=== PATIENT | male | born 1945 | race African-American/Black ===

== ENCOUNTER 2020-01-10 20:47 | Inpatient (IN) | payer MEDICARE, OTHER ==
[~2020-01-10 20:47] MED LIST: Heparin 1,000 UNITS/ML VIAL ONE
--- NOTE | 2020-01-10 23:29 | RAD ---
SINGLE VIEW OF THE CHEST: 01/10/20 HISTORY: Bowel obstruction. NG tube placement. COMPARISON: 12/19/19 FINDINGS: Single view of the lower chest/upper abdomen shows a normal sized cardiomediastinal silhouette. The M ediport is unchanged in position. An NG tube is seen in the stomach. A few air filled loops of small bowel are seen in the upper abdomen. IMPRESSION: NG tube located in the stomach. POS: EAA
[2020-01-11] MEDS ORDERED: Labetalol HCl 100 MG/20 ML VIAL ONE
--- NOTE | 2020-01-11 01:04 | HP ---
PRIMARY CARE PHYSICIAN: Dr. Eder Rhodes. CHIEF COMPLAINT: Small-bowel obstruction. HISTORY OF PRESENT ILLNESS: The patient is a 74-year-old black male. He presented to the hospital in [facility] complaining of abdominal distention with bloating and no ostomy output since last night. CT scan was obtained revealing findings consistent with a small-bowel obstruction. He has ascites within his abdomen as well. It is noted that the patient has had essentially identical CT scans both on December 19, 2019, and December 02, 2019. He was felt to have a small-bowel obstruction on both of those occasions, and he was transferred to [facility] in [place] where he had his only prior abdominal surgery in August 2019. I have no records since this patient has not been admitted to this hospital ever that I can tell. He gives a limited history. He apparently has known metastatic disease. It sounds like he probably had an obstructing colon cancer or colorectal cancer, and at the time of his surgery, a laparoscopy was performed with creation of what appears to be a left-sided ostomy. I am not certain what was done to help his obvious obstructive process on his 2 prior admissions (the most recent of which was 3 weeks ago). The patient seemed to disenchanted with the care that he got in [place] as he believes that nothing was done for him, although he acknowledges that he was better by the time he left the hospital. He tells me that he has had 1 round of chemotherapy and this was also done in [place]. The patient tells me that his surgery and his chemotherapy occurred in [place] because he "happened to be there at the time that he developed problems." PAST MEDICAL HISTORY: Significant for hypertension and hypercholesterolemia. PAST SURGICAL HISTORY: None other than his diverting colostomy. I am uncertain if any resection was performed or not. He denies any other surgeries. MEDICATIONS: He takes a blood pressure medication, the name of which he cannot remember. He takes Lipitor and aspirin. ALLERGIES: NO KNOWN DRUG ALLERGIES. PERSONAL AND SOCIAL HISTORY: He is with 3 children. He has lived in [place] for about 25 years. He formally smoked, but quit smoking in 2011. REVIEW OF SYSTEMS: Otherwise unremarkable. FAMILY HISTORY: Noncontributory. PHYSICAL EXAMINATION: VITAL SIGNS: He is afebrile. His vital signs within normal limits. GENERAL: He is a thin black male, appearing older than stated age. 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 HEAD, EYES, EARS, NOSE, AND THROAT: Unremarkable. NECK: Supple. LUNGS: Clear to auscultation. CARDIAC: Regular rate and rhythm. ABDOMEN: Distended and with hyperactive bowel sounds. He has an ostomy in his left abdomen with a bag with minimal output. His abdomen is diffusely distended and diffusely uncomfortable, but without evidence of peritonitis. LABORATORY DATA: CBC this evening revealed white blood cell count of 5.3 with a hemoglobin of 11.3 and platelet count is 324 with a normal differential. Chemistry profile reveals normal electrolytes and glucose level. His lactic acid level is normal at 0.7. His albumin is low at 0.3, but other liver function tests are normal. His CEA level has not yet been obtained, but will be obtained. ASSESSMENT: The patient with an obstruction. Based on his CAT scan, it is difficult to tell if this is within the small bowel or within the colon. He does have apparent metastatic disease, and therefore this could be a malignant obstruction. PLAN: I will admit him to the hospital, place a nasogastric tube, give him IV fluids, and obtain records from [place] to discern what was done surgically and what was done the past 2 times he was hospitalized. He may require surgery to resolve this obstruction since this is the 3rd time within a 1 month period he has been admitted for this problem. Job ID: [id number]
[2020-01-11] MEDS ORDERED: Dextrose 5% in Water 1,000 ML IV PRN ×2 (01:08→14:54)
[2020-01-11] MEDS ORDERED: Ondansetron PF 4 MG/2 ML Vial IVP PRN (01:08)
[2020-01-11] MEDS ORDERED: Dextrose 50% Abboject 50 ML SYRINGE SLOW IVP PRN ×2 (01:08→14:54)
[2020-01-11] MEDS: D5 1/2 NS w/20 mEq KCL 1,000 ML IV SCH ×3 (01:42→19:56)
[2020-01-11] MEDS: hydrALAZINE 20 MG/ML VIAL SLOW IVP PRN ×2 (03:56→23:22)
[2020-01-11 05:44] LABS: #Lymphocytes 1.2 thou/uL (1.20-3.40); #Monocytes 0.6 thou/uL (0.11-0.59); #Neutrophils 3.1 thou/uL (1.40-6.50); %Basophils 0.5 % (0.0-1.0); %Eosinophils 0.6 % (0.0-10.0); %Monocytes 12.4 % (0.0-10.0); %Neutrophils 62.5 % (42.0-75.0); Hemoglobin 12.1 g/dL (14.0-18.0); Mean Corpuscular HGB CONC 31.9 g/dL (32.0-36.0); Mean Corpuscular Hemoglobin 27.6 pg (27.0-31.0); Mean Corpuscular Volume 86.4 fL (78.0-98.0); Mean Platelet Volume 7.5 fL (7.4-10.4); Platelet Count 326 thou/uL (130-400); RBC Distribution Width 13.9 % (11.5-14.5); Red Blood Cell (RBC) Count 4.39 mill/uL (4.70-6.10)
[2020-01-11] MEDS: Morphine 2 MG/ML SYRINGE SLOW IVP PRN ×2 (05:47→21:07)
[2020-01-11 06:02] LABS: Anion Gap 11 mmol/L (10-20); BUN (Urea Nitrogen) 14 mg/dL (8.4-25.7); Calc. Creatinine Clearance 78 mL/min (70-130); Calcium 8.7 mg/dL (7.8-10.44); Carbon Dioxide 23 mmol/L (23-31); Chloride 103 mmol/L (98-107); Estimated GFR-MDRD Greater than 90; Glucose 131 mg/dL (83-110); Potassium 4.4 mmol/L (3.5-5.1); Sodium 133 mmol/L (136-145)
[2020-01-11] MEDS: Enoxaparin Sodium 30 MG/0.3 ML SYRINGE SC SCH (08:05)
[2020-01-11] MEDS: Famotidine/PF 20 mg/2ml Vial SLOW IVP SCH ×2 (08:05→19:56)
[2020-01-11] MEDS ORDERED: Insulin Regular 300 UNITS/3 ML VIAL SC PRN (14:54)
--- NOTE | 2020-01-11 15:35 | PRG ---
DATE OF SERVICE: 01/11/2020 SUBJECTIVE: Mr. Mittal is hospital day #2 followed admission yesterday evening for what appears to be a bowel obstruction. 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 He has had little ostomy output. He feels bloated, but denies other symptoms. PHYSICAL EXAMINATION: VITAL SIGNS: On examination, he is afebrile, pulse 73, blood pressure 139/85. LUNGS: Clear to auscultation. ABDOMEN: Distended, but essentially is nontender. Bowel sounds are present and normoactive. LABORATORY DATA: Basic metabolic panel shows electrolytes are essentially normal. His CEA level is 2.68. CBC shows a white blood cell count of 5 with a normal differential, hemoglobin is 12.1. ASSESSMENT: The patient with some degree of an obstruction. There was concern that this could be a malignant obstruction. I have requested medical records from the [facility] in [place] regarding his last 3 admissions, at which time, he had surgery and 2 admissions for bowel obstruction. These are beginning to come in, but there was apparently 70 or 80 pages and I have not yet had a chance to peruse them. For now, I will have a PICC line placed by Radiology. I will initiate TPN as he is already malnourished with a low albumin. I will continue nasogastric tube and encourage ambulation. I will review his medical records. May consider a small bowel series at the beginning of this next week versus consideration of surgery if there has been no evidence of resolution of the obstructive process. I have discussed all this in detail with the patient. He understands and agrees to proceed in this fashion. Dr. Sutton will cover this patient for me over the weekend. ADDENDUM: Since the prior note was dictated, I have had the chance to review 72 pages of medical records sent from [facility] in regard to Mr. Kyrie Dao. The chronological summary is as follows. August 20, he was admitted to the hospital secondary to abdominal discomfort and some weight loss. He underwent evaluation with a CT scan and an upper and lower endoscopy. There was noted to be some degree of sigmoid narrowing, but biopsies proved to be negative. There was no evidence of malignancy on CT scan. There was some degree of hydronephrosis. Apparently, at that time, there was consultation with colorectal surgery. His next hospitalization was November 05 at which time, a colorectal surgeon, Dr. Tom took him to the operating room for a planned robotic-assisted sigmoid colectomy. Dr. Tom noted that he could not advance his finger in the rectum at the time of the surgery. There was some degree of narrowing or stricture. At the time of laparoscopic evaluation, the patient was noted to have a large mesenteric mass within the proximal jejunum. 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 There was evidence of carcinomatosis and there was studding involving the sigmoid colon as well. For this reason, the patient was given a loop colostomy. The mid transverse colon was utilized through a left lower quadrant incision. There is no actual colon resection. The apparent etiology of the malignancy did not seem to be determined at the time of that surgery. On November 14, the patient returned to the hospital when he was noted to have prolapse of his loop colostomy and he required a segmental resection with revision of the ostomy. He still has a double-barrel colostomy, but it is of a [place] type. On December 02, the patient returned to the hospital and was hospitalized for 1 week. He presented with a small-bowel obstruction, which seemed to resolve quickly. During that visit, a MediPort was placed and chemotherapy was initiated. I saw no notes with the transferred records from Oncology in regard to their thoughts or plans. On December 19 (earlier this month), the patient again returned to the hospital with an apparent obstruction. He was treated with nasogastric tube placement. I could find no notes of his course, but it appeared that his obstruction resolved with conservative management. It was noted on that history and physical examination, the patient was COVID-19 positive prior to that admission (apparently sometime in late November). ASSESSMENT: In summary, the patient I believe is felt to have an adenocarcinoma, potentially of unknown etiology with carcinomatosis and a large mesenteric mass with studding involving the sigmoid colon. I am not certain if there were any further surgical plans. Unfortunately, it is Tuesday evening at this time and it seems unlikely that I will be able to get hold of the patient's surgeon to discuss his case. I will therefore plan to speak with this patient's surgeon Tuesday morning to make sure that there is nothing about this patient's course that I do not understand. My guess is that he was receiving palliative chemotherapy. Job ID: [id number]
--- NOTE | 2020-01-11 17:48 | SPC ---
Exam: Ultrasound-guided left upper extremity PICC line placement HISTORY: Patient requires TPN. Colon cancer FINDINGS: Successful left upper extremity PICC line placement. Dual lumen 5 Turkmen catheter terminate s in the right atrium. 45 cm trim length. Catheter flushes and aspirates without difficulty TECHNIQUE: Left upper extremity PICC line placement with ultrasound guidance was performed. Consent w as obtained. Sterile technique was utilized. Under ultrasound guidance, micropuncture needle was used to cannulate the brachial vein. A 0.018 guidewire was advanced through the needle to the level o f the right atrium. Tract dilatation was performed. Dual lumen 5 Turkmen catheter was advanced over the wire. Wire was removed. Both lumens flush and aspirate without difficulty. 45 cm trim length IMPRESSION: Successful left upper extremity PICC line placement with ultrasound guidance Transcribed Date/Time: 01/11/2020 6:12 PM
[2020-01-11 18:14] LABS: PTT 33.2 SEC (22.9-36.1); Prothrombin Time 13.5 SEC (12.0-14.7)
[2020-01-11 18:27] LABS: Phosphorus 3.2 mg/dL (2.3-4.7)
[2020-01-11 18:31] LABS: ALT (SGPT) 12 U/L (8-55); AST (SGOT) 15 U/L (5-34); Alkaline Phosphatase 61 U/L (40-110); Anion Gap 11 mmol/L (10-20); BUN (Urea Nitrogen) 13 mg/dL (8.4-25.7); Bilirubin, Total 0.6 mg/dL (0.2-1.2); Calc. Creatinine Clearance 71 mL/min (70-130); Calcium 8.8 mg/dL (7.8-10.44); Carbon Dioxide 25 mmol/L (23-31); Cardiac Risk 2.2 (Less than 4.5); Chloride 103 mmol/L (98-107); Cholesterol 102 mg/dl (< 200 Desired); Estimated GFR-MDRD Greater than 90; Globulin 2.7 g/dL (2.4-3.5); Glucose 103 mg/dL (83-110); HDL Cholesterol 46 mg/dL (>60 Neg Risk); LDL Cholesterol, Calculated 46 mg/dL; Magnesium 1.7 mg/dL (1.6-2.6); Potassium 4.6 mmol/L (3.5-5.1); Protein, Total 5.7 g/dL (5.8-8.1); Sodium 134 mmol/L (136-145); Triglycerides 48 mg/dL (Less than 150)
[2020-01-11] MEDS: [UNRECOGNIZED DRUG - OTHER] IV SCH (22:15)
[2020-01-11] MEDS: SODIUM CHLORIDE IV SCH (22:15)
[2020-01-11] MEDS: FAT EMULSION IV SCH (22:15)
[2020-01-11] MEDS: SODIUM ACETATE IV SCH (22:15)
--- NOTE | 2020-01-12 00:19 | PRG ---
DATE OF SERVICE: 01/11/2020 SUBJECTIVE: This is a 74-year-old gentleman, hospital day #2, with small-bowel obstruction. The patient is currently resting comfortably in no acute distress. The patient's night nurse reports no output from his colostomy and also no output from his NG tube. NG tube appears to be functioning properly. OBJECTIVE: Vital signs: Blood pressure 162/97, temperature 97.3, pulse 85, respirations 18, SpO2 of 95% on room air. ASSESSMENT: Small-bowel obstruction. PLAN: Bowel rest, maintenance IV fluids, TPN. Continue NG tube and encourage ambulation. Job ID: [id number]
[2020-01-12 05:42] LABS: Anion Gap 9 mmol/L (10-20); BUN (Urea Nitrogen) 14 mg/dL (8.4-25.7); Calc. Creatinine Clearance 80 mL/min (70-130); Calcium 8.6 mg/dL (7.8-10.44); Carbon Dioxide 24 mmol/L (23-31); Chloride 104 mmol/L (98-107); Estimated GFR-MDRD Greater than 90; Glucose 110 mg/dL (83-110); Magnesium 1.8 mg/dL (1.6-2.6); Phosphorus 3.2 mg/dL (2.3-4.7); Potassium 4.9 mmol/L (3.5-5.1); Sodium 132 mmol/L (136-145)
[2020-01-12 05:54] LABS: Hemoglobin 12.3 g/dL (14.0-18.0); Mean Corpuscular HGB CONC 30.7 g/dL (32.0-36.0); Mean Corpuscular Hemoglobin 26.9 pg (27.0-31.0); Mean Corpuscular Volume 87.7 fL (78.0-98.0); Mean Platelet Volume 7.4 fL (7.4-10.4); Platelet Count 320 thou/uL (130-400); Red Blood Cell (RBC) Count 4.56 mill/uL (4.70-6.10); White Blood Cell (WBC) Count 5.7 thou/uL (4.8-10.8)
[2020-01-12 06:12] LABS: Band 9 % (5-11); Lymphocytes 19 % (21-51); MDiff Complete? YES; Monocytes 12 % (0-10); Neutrophil 60 % (42-75)
[2020-01-12] MEDS ORDERED: Sodium Phosphate 15 MMOL in Sodium Chloride 0.9% 250 ML 250 ML IVPB SCH (07:30)
[2020-01-12] MEDS ORDERED: Magnesium 2 GM/50 ML 2 GM in Premix Bag 1 BAG IVPB SCH (07:30)
[2020-01-12] MEDS ORDERED: Sodium Chloride 0.9% 1,000 ML IV SCH (07:30)
[2020-01-12] MEDS: Metoprolol Tartrate 25 MG TAB PO SCH ×2 (08:15→20:10)
[2020-01-12] MEDS: Lisinopril 20 MG TAB PO SCH (08:15)
[2020-01-12] MEDS: Famotidine/PF 20 mg/2ml Vial SLOW IVP SCH ×2 (08:16→20:10)
[2020-01-12] MEDS: Enoxaparin Sodium 30 MG/0.3 ML SYRINGE SC SCH (08:26)
[2020-01-12] MEDS: D5 1/2 NS w/20 mEq KCL 1,000 ML IV SCH (08:33)
[2020-01-12] MEDS ORDERED: MD-Gastroview 120 ML BOT ONE (10:18)
[2020-01-12] MEDS: Morphine 2 MG/ML SYRINGE SLOW IVP PRN (15:02)
--- NOTE | 2020-01-12 15:12 | RAD ---
Gastrografin small bowel follow-through INDICATION: Small bowel obstruction COMPARISON: Prior CT the abdomen and pelvis dated January 10, 2020 Gastrografin contrast volume: 120 cc. FINDINGS: Snowboarding Instructor: There are dilated loops of small bowel within the upper to mid central abdomen gastric cathete r is seen within the region of the gastric body. Small bowel follow-through: There are numerous dilated loops of small bowel seen involving the mid to distal abdomen. Contrast is seen to enter into a dilated loop of small bowel within the right hemiabdomen by the 2 hour time mari. At this time, Dr. Sutton of General Surgery requested termination of the examination. IMPRESSION: High-grade small bowel obstruction
--- NOTE | 2020-01-12 16:33 | PRG ---
DATE OF SERVICE: 01/12/2020 SUBJECTIVE: I am seeing Mr. Dao on behalf of Dr. Loera. The patient is a 74-year-old man with history of obstructing colorectal cancer. The patient is status post diverting colostomy. He was admitted with acute bowel obstruction, uncertain if this was a large small bowel obstruction. Nasogastric tube was placed. The patient is on bowel rest with TPN for nutrition. At the time of my evaluation this morning, the patient reported adequate pain control. He has had no fevers or chills. Previous nasogastric tube has returned less than 100 mL of nonbilious gastric effluent. Nasogastric tube was inspected for proper positioning and adequate function was established and yet no output of bilious fluid. OBJECTIVE: VITAL SIGNS: This morning included blood pressure 160/111, pulse 91, respiratory rate 18, temperature 97.4 degrees Fahrenheit, oxygen saturation 97% on room air. HEART: Reveals regular rate and rhythm. No murmurs or gallops auscultated. LUNGS: Clear to auscultation bilaterally. Breathing, regular and nonlabored. ABDOMEN: Soft and nondistended with minimum tenderness to palpation. Colostomy is viable with no stool or gas output. NEUROLOGIC: Reveals no focal deficits present. LABORATORY FINDINGS: Include a CBC with 5007 white blood cells, hemoglobin and hematocrit 12.3 and 40.0 respectively, the platelet count is 320,000. Metabolic profile; sodium 132, potassium 4.9, chloride is 104, bicarb is 24, BUN 14, creatinine 0.70, glucose 110, magnesium 1.8, and phosphorus is 3.2. I initiated small bowel follow-through with Gastrografin, and at 2 hours, the contrast has entered dilated mid jejunum. The patient started to complain of severe intestinal cramps associated with abdominal bloating, hiccups, and nausea. Small bowel follow-through was terminated at 2 hours and nasogastric tube was replaced to wall suction, at which time 1.5 L of bilious succus entericus was evacuated. IMPRESSION: 1. Acute small bowel obstruction, likely secondary to adhesions versus progressive malignancy. 2. Acute hyponatremia. 3. Acute hypomagnesemia. PLAN: 1. Continue bowel rest with nasogastric tube decompression. 2. Total parenteral nutrition will be continued. 3. We will continue with this conservative management at this time and increase activity as the patient may tolerate. 4. If the small bowel obstruction fails to resolve within the next few days, other options will be discussed with the patient at that time by his primary surgeon. The patient indicated understanding of information given. 5. I have answered his questions. Job ID: [id number]
[2020-01-12] MEDS: hydrALAZINE 20 MG/ML VIAL SLOW IVP PRN (17:55)
[2020-01-12] MEDS ORDERED: Ketorolac Tromethamine 30 MG/ML VIAL IVP SCH (20:30)
[2020-01-12] MEDS: [UNRECOGNIZED DRUG - OTHER] IV SCH (22:30)
[2020-01-12] MEDS: SODIUM CHLORIDE IV SCH (22:30)
[2020-01-12] MEDS: FAT EMULSION IV SCH (22:30)
[2020-01-12] MEDS: SODIUM ACETATE IV SCH (22:30)
[2020-01-13] MEDS: Ketorolac Tromethamine 30 MG/ML VIAL IVP SCH ×4 (02:24→21:02)
--- NOTE | 2020-01-13 03:43 | PRG ---
DATE OF SERVICE: 01/13/2020 SUBJECTIVE: The patient remains on the surgical floor, awake, alert, in no distress. The patient is having some moderate amount of abdominal pain currently. The patient's NG tube repositioned and flushed and appears to be working properly at this time. Nursing staff states that the morphine makes him confused. The patient continues to receive TPN and remains n.p.o. with bowel rest. No bilious output from NG tube. OBJECTIVE: VITAL SIGNS: Stable, afebrile. GENERAL: Well-appearing elderly male, in no acute distress. RESPIRATORY: Equal chest rise and fall. No respiratory distress. IMPRESSION: 1. Acute small bowel obstruction, likely secondary to adhesions versus progressive malignancy. 2. Acute hyponatremia. 3. Acute hypomagnesium. PLAN: Continue bowel rest with nasogastric tube decompression. Continue parenteral nutrition. Conservative management at this time and increase activity as the patient tolerates. We will add Toradol to the patient's pain regimen as the morphine makes him confused. Job ID: [id number]
[2020-01-13 06:17] LABS: Hemoglobin 10.9 g/dL (14.0-18.0); Mean Corpuscular HGB CONC 30.7 g/dL (32.0-36.0); Mean Corpuscular Hemoglobin 26.9 pg (27.0-31.0); Mean Corpuscular Volume 87.4 fL (78.0-98.0); Mean Platelet Volume 7.5 fL (7.4-10.4); Platelet Count 303 thou/uL (130-400); RBC Distribution Width 14.1 % (11.5-14.5); Red Blood Cell (RBC) Count 4.05 mill/uL (4.70-6.10); White Blood Cell (WBC) Count 5.8 thou/uL (4.8-10.8)
[2020-01-13 06:39] LABS: Band 4 % (5-11); Lymphocytes 23 % (21-51); MDiff Complete? YES; Monocytes 12 % (0-10); Neutrophil 60 % (42-75); Reactive Lymphocytes 1 % (0-10)
[2020-01-13 06:43] LABS: ALT (SGPT) 9 U/L (8-55); AST (SGOT) 13 U/L (5-34); Albumin 2.7 g/dL (3.4-4.8); Alkaline Phosphatase 49 U/L (40-110); Anion Gap 9 mmol/L (10-20); BUN (Urea Nitrogen) 28 mg/dL (8.4-25.7); Bilirubin, Total 0.3 mg/dL (0.2-1.2); Calc. Creatinine Clearance 80 mL/min (70-130); Calcium 8.9 mg/dL (7.8-10.44); Carbon Dioxide 27 mmol/L (23-31); Chloride 104 mmol/L (98-107); Estimated GFR-MDRD Greater than 90; Globulin 2.4 g/dL (2.4-3.5); Glucose 78 mg/dL (83-110); Magnesium 2.1 mg/dL (1.6-2.6); Potassium 4.7 mmol/L (3.5-5.1); Protein, Total 5.1 g/dL (5.8-8.1); Sodium 135 mmol/L (136-145)
--- NOTE | 2020-01-13 08:07 | RAD ---
KUB: INDICATION: NG tube placement. COMPARISON: 01/12/2020 small bowel study. IMPRESSION: Gastric catheter is seen within the region of the gastric body. Dilated loops of gas-filled small sharlene wel are seen within the upper abdomen. Lung bases are clear. POS: BH
[2020-01-13] MEDS: Famotidine/PF 20 mg/2ml Vial SLOW IVP SCH ×2 (08:41→21:04)
[2020-01-13] MEDS: Lisinopril 20 MG TAB PO SCH (08:42)
[2020-01-13] MEDS: Enoxaparin Sodium 30 MG/0.3 ML SYRINGE SC SCH (08:42)
[2020-01-13] MEDS: Metoprolol Tartrate 25 MG TAB PO SCH ×2 (08:42→21:04)
--- NOTE | 2020-01-13 09:18 | RAD ---
KUB AND UPRIGHT: HISTORY: Small bowel obstruction followup from small bowel follow through. COMPARISON: Small bowel follow through exam and KUB performed earlier today. FINDINGS: The dilated small bowel loops persist. There does appear to be some of the oral contrast which has p assed into the right colon. Contrast is very diluted. IMPRESSION: 1. Nasogastric tube present with tip in the antrum region of the stomach. 2. Marked small bowel distention persists. Some of the oral contrast has passed into the right colo n. POS: CIERA
--- NOTE | 2020-01-13 11:41 | PRG ---
DATE OF SERVICE: 01/13/2020 SUBJECTIVE: Mr. Dao is a 74-year-old pleasant man with history of obstructing colorectal cancer. The patient was admitted with acute small bowel obstruction. A small-bowel follow-through yesterday was terminated due to onset of abdominal cramping 2 hours. The contrast was noted in the mid jejunum. Overnight, the patient has done well. This morning, he reports no abdominal pain. The nasogastric tube had returned over 2.5 L of initially bilious but now nonbilious effluent. OBJECTIVE: VITAL SIGNS: This morning include blood pressure 136/68, pulse 79, respiratory rate is 16, temperature 98 degrees Fahrenheit, oxygen saturation 97% on room air. HEART: Reveals rate controlled, irregular rate and rhythm. LUNGS: Clear to auscultation bilaterally. Breathing, regular and nonlabored. ABDOMEN: Soft, moderately distended with minimum tenderness to palpation. Clearly no rebound tenderness present. Colostomy remains viable now with moderate amount of semi-formed stool. NEUROLOGIC: Reveals no focal deficits present. LABORATORY DATA: Include a CBC with 5800 white blood cells, hemoglobin and hematocrit 10.9 and 35.4 respectively. The platelet count is 303,000. Metabolic profile: Sodium 135, potassium 4.7, chloride is 104, bicarb is 27, BUN 28, creatinine 0.70, glucose 78, magnesium 2.1, and phosphorus is 4.0. Prealbumin today is 9.0. IMPRESSIONS: 1. Resolving acute small-bowel obstruction. 2. Moderate chronic malnutrition. 3. Acute hyponatremia, resolving. PLAN: 1. Continue with bowel rest at the moment with nasogastric tube decompression. We will place the patient on stool softeners and re-evaluate later for effect. 2. Increase activity per Physical and Occupational Therapy. 3. We will continue with serial physical examination and determine if nasogastric tube could be discontinued and patient started on liquid diet if the ostomy continues to be functional and no onset of abdominal pain. Above findings and plan discussed with the patient who indicates understanding of information given. I have answered his questions. Job ID: [id number]
[2020-01-13] MEDS: SODIUM ACETATE IV SCH (22:35)
[2020-01-13] MEDS: [UNRECOGNIZED DRUG - OTHER] IV SCH (22:35)
[2020-01-13] MEDS: SODIUM CHLORIDE IV SCH (22:35)
[2020-01-13] MEDS: FAT EMULSION IV SCH (22:35)
--- NOTE | 2020-01-13 22:59 | PRG ---
DATE OF SERVICE: 01/13/2020 SUBJECTIVE: The patient was seen during evening rounds, awake, alert, in no distress. The patient had his NG tube clamped at about 7:30 of this evening. The patient's pain is well controlled and voices no complaints at this time. The patient continues to have output from his colostomy, moderate amount of semi-formed stool, approximately 30 mL. NG output total 700 for day shift. The patient remains n.p.o. and receiving TPN. OBJECTIVE: VITAL SIGNS: Stable, afebrile. RESPIRATORY: Equal chest rise and fall. Bilateral breath sounds clear. ABDOMEN: Soft, moderately distended. Colostomy remains viable with moderate amount of semi-formed stool. NEUROLOGIC: No focal deficits. IMPRESSION: 1. Resolving acute small bowel obstruction. 2. Moderate chronic malnutrition. 3. Acute hyponatremia, resolving. PLAN: NG tube as tolerated. Increase activity per Physical and Occupational Therapy. The plan was discussed with the patient who agrees. Job ID: [id number]
[2020-01-14] MEDS: Ketorolac Tromethamine 30 MG/ML VIAL IVP SCH (04:15)
[2020-01-14 07:29] LABS: ALT (SGPT) 9 U/L (8-55); AST (SGOT) 12 U/L (5-34); Albumin 2.5 g/dL (3.4-4.8); Alkaline Phosphatase 52 U/L (40-110); Anion Gap 11 mmol/L (10-20); BUN (Urea Nitrogen) 34 mg/dL (8.4-25.7); Bilirubin, Total 0.3 mg/dL (0.2-1.2); Calc. Creatinine Clearance 84 mL/min (70-130); Calcium 8.5 mg/dL (7.8-10.44); Carbon Dioxide 23 mmol/L (23-31); Chloride 105 mmol/L (98-107); Estimated GFR-MDRD Greater than 90; Globulin 2.3 g/dL (2.4-3.5); Glucose 76 mg/dL (83-110); Magnesium 1.9 mg/dL (1.6-2.6); Phosphorus 3.3 mg/dL (2.3-4.7); Potassium 4.8 mmol/L (3.5-5.1); Protein, Total 4.8 g/dL (5.8-8.1); Sodium 134 mmol/L (136-145)
[2020-01-14] MEDS: Famotidine/PF 20 mg/2ml Vial SLOW IVP SCH ×2 (10:50→20:14)
[2020-01-14] MEDS: Enoxaparin Sodium 30 MG/0.3 ML SYRINGE SC SCH (10:50)
[2020-01-14] MEDS: Lisinopril 20 MG TAB PO SCH (10:51)
[2020-01-14] MEDS: Metoprolol Tartrate 25 MG TAB PO SCH ×2 (10:51→20:14)
--- NOTE | 2020-01-14 14:34 | PRG ---
DATE OF SERVICE: 01/14/2020 SUBJECTIVE: Mr. Mittal had an uneventful weekend. An attempted small bowel follow-through was made by Dr. Sutton on Tuesday with no contrast passing through at the time of the study. Over the past day, however, the patient notes that his colostomy opened up and he had a large volume output with multiple colostomy bag changes. He notes that he feels much better. Nasogastric tube is still in place. He notes that he has had very little ostomy output today. He is ambulating regularly. He denies pain other than with his nasogastric tube. As documented on my progress note from 01/10, I have reviewed multiple pages of medical records from his hospitalizations at [facility]. Today, I reviewed more records finding consultations from his oncologist. They were treating him with FOLFOX and Avastin for what was presumed to be metastatic colon cancer. The patient's CEA level is normal. He has had 2 courses of treatment. There was reference in the records of their desire to transfer his oncologic care to a local oncologist, but this had not yet been arranged. OBJECTIVE: VITAL SIGNS: He is afebrile. Pulse 77, blood pressure 142/77. LUNGS: Clear to auscultation. ABDOMEN: Soft with normal bowel sounds. EXTREMITIES: Unremarkable. Nasogastric tube was checked and there are no current gastric contents. ASSESSMENT: I am hopeful that his obstructive process is resolved. I will remove his nasogastric tube and start him on a clear liquid diet. I will obtain an Oncology consult. His nutritional status is abysmal and even with TPN, his pre-albumin level has been dropping daily from 12 at the time of admission down to 8 today. We will continue TPN for now and wean this as he starts to tolerate appropriate oral calories. If he has further obstructive problems, he may end up requiring some form of exploration to determine the cause of his obstruction. Job ID: [id number]
--- NOTE | 2020-01-14 18:33 | CON ---
DATE OF CONSULTATION: REASON FOR CONSULTATION: Metastatic colon cancer. HISTORY OF PRESENT ILLNESS: Mr. Dao is a pleasant gentleman who was diagnosed with metastatic colon adenocarcinoma in 10/2019 at [facility]. He had initially presented in 08/2019 with one year of abdominal pain, constipation, and diarrhea. He had a 35-pound weight loss. He had underwent testing including a colonoscopy, which showed extrinsic moderate stenosis in the sigmoid colon. Biopsy was negative for malignancy and showed tubular adenoma. He was in [place] in October, and underwent exploratory laparoscopy at [facility]. There was adhesion of the sigmoid colon to the peritoneal reflection. There were numerous peritoneal metastasis. A large bulky mass in the small bowel mesentery was noted close to the proximal jejunum. He had a small-bowel obstruction and his transverse colon was dilated. Biopsy of the small bowel mass showed metastatic adenocarcinoma, consistent with colon primary. It was Nick positive, MSI stable, and wild-type from BRAF, KRAS, NRAS, and HRAS. The patient was then seen by an oncologist in [place] in late October, and was having abdominal pain, concerning for colostomy prolapse and was taken for emergent colostomy revision. He was hospitalized again from 12/02 through 12/09 in [place] for small-bowel obstruction. He did receive adjuvant FOLFOX and Avastin on 12/07/2019. He was discharged home, but again presented to [facility] with cramping pain in his right lower quadrant. It is similar to his prior symptoms. During that hospitalization at [facility], he received cycle 2 of FOLFOX and Avastin. He was once again discharged home. He presented to our hospital on 01/09. CT scan revealed findings consistent with small-bowel obstruction. He had ascites. NG tube was placed and IV fluids was started. He was found to be severely malnourished. A PICC line was placed and he has been started on TPN. His NG tube has been removed and he appears to be tolerating clear liquid. He has had significant output in the last 24 hours from his colostomy. We were asked to assist with his transfer of care to our clinic as would be very closer to his home in [place]. PAST MEDICAL HISTORY: 1. Metastatic colon cancer, diagnosed in October, status post 2 cycles of FOLFOX/Avastin. 2. Hypertension. 3. Hyperlipidemia. 4. Small-bowel obstruction. PAST SURGICAL HISTORY: 1. MediPort placement. 2. Colostomy. ALLERGIES: NO KNOWN DRUG ALLERGIES. CURRENT MEDICATIONS: 1. Lovenox. 2. Pepcid. 3. TPN. 4. Zestril. 5. Lopressor. 6. Morphine p.r.n. FAMILY HISTORY: No history of colon cancer. SOCIAL HISTORY: , [id number] history of smoking, quit 8 years ago. No alcohol or illicit drug use. REVIEW OF SYSTEMS: Positive for abdominal pain, otherwise negative. PHYSICAL EXAMINATION: VITAL SIGNS: Temperature is 98.2, pulse is 74, respiratory rate 18, BP is 148/83, and he is 97% on room air. GENERAL: This is a thin male, in no acute distress. HEENT: Normocephalic and atraumatic. Pupils are equal and reactive to light. NECK: Supple. CV: Regular rate and rhythm. LUNGS: Clear. ABDOMEN: Distended, but nontender. He has scant output in his colostomy. EXTREMITIES: There is no clubbing or cyanosis. SKIN: No rash. HEMATOLOGIC: No petechiae or purpura. NEUROLOGIC: Nonfocal. PERTINENT LABORATORY DATA AND X-RAYS: Current WBCs are 5.8, hemoglobin 10.9, hematocrit 35.4, platelet count 303,000. He has 60% neutrophils, 4% bands, and 23% lymphocytes. PT is 13.5, INR is 1, and PTT is 33.2. Sodium 134, potassium 4.8, chloride 105, CO2 is 23, BUN is 34, creatinine 0.67, and calcium is 8.5. Phosphorus 3.3. Magnesium 1.9. Bilirubin 0.3, AST is 12, ALT is 9, alkaline phosphatase is 52. Serum total protein is 4.8, albumin 2.5, pre-albumin is 8. CEA is 2.68. Radiology per HPI. ASSESSMENT: 1. Metastatic adenocarcinoma, colon primary, status post 2 cycles of chemotherapy at [facility]. 2. Small-bowel obstruction. DISCUSSION: Per medical records review from [facility], the patient has stage IV adenocarcinoma of the colon with peritoneal disease and a bulky small bowel mesenteric mass. He has had struggled with partial small-bowel obstructions since diagnosis, currently appears to be improving. He is due for cycle 3 soon. He is severely malnourished and is receiving TPN. Hopefully, he will improve over the next few days and be able to tolerate oral intake. We will have his medical records from his [facility] visits, and we will set up appointment to see one of his physicians and resume chemotherapy within hopefully the next week as he is due for cycle 3. This was all discussed in detail with the patient. Thank you for the consult. We will follow along with his hospitalization. Job ID: [id number]
[2020-01-14] MEDS: SODIUM ACETATE IV SCH ×2 (22:37→22:54)
[2020-01-14] MEDS: [UNRECOGNIZED DRUG - OTHER] IV SCH (22:37)
[2020-01-14] MEDS: SODIUM CHLORIDE IV SCH ×2 (22:37→22:54)
[2020-01-14] MEDS: FAT EMULSION IV SCH ×2 (22:37→22:54)
[2020-01-14] MEDS: [UNRECOGNIZED DRUG - OTHER] IV SCH (22:54)
[2020-01-15] MEDS: Morphine 2 MG/ML SYRINGE SLOW IVP PRN (03:26)
[2020-01-15] MEDS ORDERED: Morphine 2 MG/ML SYRINGE SLOW IVP SCH (04:15)
[2020-01-15] MEDS ORDERED: Morphine 4 MG/ML VIAL IV PRN (06:24)
[2020-01-15 07:04] LABS: ALT (SGPT) 11 U/L (8-55); AST (SGOT) 16 U/L (5-34); Albumin 2.6 g/dL (3.4-4.8); Alkaline Phosphatase 61 U/L (40-110); Anion Gap 10 mmol/L (10-20); BUN (Urea Nitrogen) 32 mg/dL (8.4-25.7); Bilirubin, Total 0.5 mg/dL (0.2-1.2); Calc. Creatinine Clearance 79 mL/min (70-130); Calcium 8.2 mg/dL (7.8-10.44); Carbon Dioxide 21 mmol/L (23-31); Chloride 106 mmol/L (98-107); Estimated GFR-MDRD Greater than 90; Globulin 2.4 g/dL (2.4-3.5); Glucose 81 mg/dL (83-110); Potassium 4.8 mmol/L (3.5-5.1); Sodium 132 mmol/L (136-145)
--- NOTE | 2020-01-15 08:01 | RAD ---
PORTABLE CHEST: DATE: 01/15/2020. PROVIDED CLINICAL HISTORY: Small bowel obstruction. FINDINGS: Comparison 01/13/2020 abdominal radiograph and 01/10/2020 chest radiograph. Pneumoperitoneum is now no julio. Additional significant interval change with respect to the prior examination is not apparent. IMPRESSION: Pneumoperitoneum worrisome for bowel perforation in the absence of interval surgery. Findings communicated to nurse Jacobs at 7:37 a.m. 01/15/2020. CODE CR POS: MELISSA
[2020-01-15] MEDS: Famotidine/PF 20 mg/2ml Vial SLOW IVP SCH ×2 (09:21→20:57)
[2020-01-15] MEDS: Enoxaparin Sodium 30 MG/0.3 ML SYRINGE SC SCH (09:21)
[2020-01-15] MEDS: Lisinopril 20 MG TAB PO SCH (09:23)
[2020-01-15] MEDS: Metoprolol Tartrate 25 MG TAB PO SCH (09:24)
[2020-01-15] MEDS ORDERED: Succinylcholine Chloride 20 MG/ML 10 ml SYRINGE FS ONE (09:37)
[2020-01-15] MEDS ORDERED: Lidocaine 2% w/Epinephrine 1:200K 20 ML VIAL ONE (09:37)
[2020-01-15] MEDS ORDERED: Lidocaine 1% PF 5 ML VIAL ONE (09:37)
[2020-01-15] MEDS ORDERED: Rocuronium Bromide 10 MG/ML (10ML VIAL) ONE (09:37)
[2020-01-15] MEDS ORDERED: PHENYLEPHRINE-NS 100 MCG/ML 10 ML SYRINGE ONE (09:37)
[2020-01-15] MEDS ORDERED: Bupivacaine HCl 0.5%/Epinephrine 1:200,000/PF 30 ml Vial ONE (09:37)
[2020-01-15] MEDS ORDERED: Ondansetron PF 4 MG/2 ML Vial ONE (09:37)
[2020-01-15 09:50] LABS: Hemoglobin 10.8 g/dL (14.0-18.0); Mean Corpuscular HGB CONC 31.2 g/dL (32.0-36.0); Mean Corpuscular Hemoglobin 27.3 pg (27.0-31.0); Mean Corpuscular Volume 87.6 fL (78.0-98.0); Platelet Count 242 thou/uL (130-400); RBC Distribution Width 14.3 % (11.5-14.5); Red Blood Cell (RBC) Count 3.95 mill/uL (4.70-6.10); White Blood Cell (WBC) Count 3.1 thou/uL (4.8-10.8)
[2020-01-15] MEDS ORDERED: Sodium Chloride 0.9% 500 ML IVPB SCH (10:00)
[2020-01-15 10:16] LABS: Band 33 % (5-11); Lymphocytes 19 % (21-51); MDiff Complete? YES; Metamyelocyte 1 % (0-0); Monocytes 4 % (0-10); Neutrophil 43 % (42-75); Platelet Morphology Comment Appears Adequate; Polychromasia SLIGHT = 2-3 cells (100X) (0-2/hpf); Vacuoles SLIGHT
[2020-01-15] MEDS ORDERED: Piperacillin/Tazobactam 3.375 GM VIAL ONE (10:55)
[2020-01-15] MEDS ORDERED: Sodium Chloride 0.9% 100 ML ONE (10:56)
[2020-01-15] MEDS ORDERED: Fentanyl 100 MCG/2 ML VIAL ONE ×2 (11:31→11:58)
[2020-01-15] MEDS ORDERED: Famotidine/PF 20 mg/2ml Vial ONE (11:58)
[2020-01-15] MEDS ORDERED: Phenylephrine 10 MG/ML VIAL ONE (11:59)
[2020-01-15] MEDS ORDERED: Albumin 5% 500 ML ONE (11:59)
--- NOTE | 2020-01-15 12:25 | PRG ---
DATE OF SERVICE: 01/15/2020 SUBJECTIVE: Mr. Mittal has decompensated overnight. Yesterday (Tuesday), he seemed to be doing well following the weekend and he had, had a large volume colostomy output. Accordingly, his nasogastric tube was removed and he was started on a clear liquid diet. During the night, he developed severe abdominal pain. The nasogastric tube was replaced and an x-ray obtained following that revealed a large volume of free air within the abdomen. He has developed tachycardia overnight with a heart rate of 117. His blood pressure has dropped somewhat also and is now 102/71. He has no complaints other than abdominal pain. Nasogastric tube was placed, but has had little output. OBJECTIVE: VITAL SIGNS: On examination, he is afebrile, but tachycardic. LUNGS: Clear to auscultation. His abdomen is distended and diffusely tender. LABORATORY DATA: His white blood cell count has dropped down to 3.1 with a hemoglobin of 10.8, platelet count is 242. He has developed a markedly left shift with 43% neutrophils and 33% bands. His metabolic panel reveals hyponatremia with sodium of 132. His carbon dioxide has dropped down to 21. His albumin remains stable at 2.6. ASSESSMENT AND PLAN: He has an acute perforation. He previously had some degree of a bowel obstruction. I presume that the perforation is obstruction related. He also has diffuse intraabdominal malignancy with carcinomatosis. Due to the degree of distention, he will require exploratory laparotomy with the procedure performed depending upon intraoperative findings. I have discussed all this with the patient. He understands and agrees to proceed with surgery at this time. Job ID: [id number]
[2020-01-15] MEDS ORDERED: SUGAMMADEX SODIUM 200 MG/2 ML VIAL ONE (13:38)
--- NOTE | 2020-01-15 15:00 | PDOC.MOPN ---
Interval History: seen in ICU postop, drowsy. TPN continues, gavin in place. - Vital Signs Vital Signs: Vital Signs (12 hours) Temp Pulse Resp BP BP Pulse Ox 01/15/20 09:23 117/78 01/15/20 07:29 97.9 F 117 H 28 H 102/71 95 Weight Admit Weight 134 lb 12.8 oz Weight 134 lb 12.8 oz - Physical Exam General: No acute distress HEENT: Atraumatic, PERRLA, EOMI, Mucous membr. moist/pink Lungs: Other (wheezing) Cardiovascular: Regular rate Abdomen: Other Neurological: Other (sleepy post op) - Labs Result Diagrams: 01/15/20 09:34 01/15/20 06:30 Lab results: Laboratory Results - last 24 hr 01/15/20 09:34: WBC 3.1 L, RBC 3.95 L, Hgb 10.8 L, Hct 34.6 L, MCV 87.6, MCH 27.3, MCHC 31.2 L, RDW 14.3, Plt Count 242, MPV 8.0, Neutrophils % (Manual) 43, Band Neuts % (Manual) 33 H, Lymphocytes % (Manual) 19 L, Monocytes % (Manual) 4 , Metamyelocytes % (Man) 1 H, Lymphocytes # Not Reportable, WBC Morphology SLIGHT, Plt Morphology Comment Appears Adequate, Polychromasia SLIGHT = 2-3 cells 01/15/20 06:30: C-Reactive Protein 2.50 H 01/15/20 06:30: Prealbumin 8.0 L 01/15/20 06:30: Sodium 132 L, Potassium 4.8, Chloride 106, Carbon Dioxide 21 L, Anion Gap 10, BUN 32 H, Creatinine 0.71, Estimated GFR (MDRD) Greater than 90, Glucose 81 L, Calcium 8.2, Total Bilirubin 0.5, AST 16, ALT 11, Alkaline Phosphatase 61, Serum Total Protein 5.0 L, Albumin 2.6 L, Globulin 2.4, Albumin/ Globulin Ratio 1.1 L 01/15/20 05:39: POC Glucose 94 01/14/20 20:16: POC Glucose 109 01/14/20 15:16: POC Glucose 114 H Status: lab reviewed by me A/P - Problem (1) Metastatic adenocarcinoma Current Visit: Yes Code(s): C79.9 - SECONDARY MALIGNANT NEOPLASM OF UNSPECIFIED SITE Status: Acute (2) Small bowel obstruction Current Visit: Yes Code(s): K56.609 - UNSP INTESTNL OBST, UNSP TO PARTIAL VERSUS COMPLETE OBST Status: Acute - Plan Plan: Continue TPN Hopefully, he will recover and tolerate oral intake His nutritional status needs to improve as well as performance status before he continues treatment. discussed with DR. Rogers
--- NOTE | 2020-01-15 15:55 | OP ---
DATE OF PROCEDURE: 01/15/2020 PREOPERATIVE DIAGNOSES: Perforated intestine, small bowel obstruction, metastatic colon cancer. POSTOPERATIVE DIAGNOSES: Perforated intestine, small bowel obstruction, metastatic colon cancer with extensive diffuse carcinomatosis involving all segments of the small bowel and colon. The bowel obstruction was secondary to a malignant obstruction and the perforation was a segment of small bowel proximal to the perforation. PROCEDURE PERFORMED: Exploratory laparotomy, drainage of extensive infected fluid collection/peritonitis, repair of small bowel perforation, jejunojejunostomy (bypass of the malignant obstruction). ANESTHESIA: General endotracheal. INDICATIONS: The patient is a 74-year-old black male. He has a history of metastatic colon cancer recognized at the time of planned colon resection in October. He has undergone chemotherapy and treatment of this. He presented to this hospital 5 days ago with a bowel obstruction. This seemed to improve somewhat with conservative management, but last night, he developed obvious deterioration and imaging study revealed a large volume of free air within the abdomen. He is taken to the operating at this time for exploratory laparotomy. He is too distended to consider doing a laparoscopy. DESCRIPTION OF OPERATION: Informed consent was obtained. The patient was taken to the operating room, where general endotracheal anesthesia obtained with the patient in supine position. A Bermudez catheter was placed, abdomen was prepped with ChloraPrep and draped in sterile fashion. A tap block had been placed preoperatively by Anesthesia. Abdomen was prepped with ChloraPrep and draped in sterile fashion. Midline incision was created and dissection was carried through skin and subcutaneous tissue. Dissection was carried into the abdominal cavity. There was extensive free air and free fluid within the abdomen. About 1600 or 1700 mL of greenish-tinged fluid was aspirated. Cultures were obtained. There was obviously a small bowel obstruction as there was noted to be very distended and diseased-appearing proximal small bowel and very decompressed normal-appearing distal small bowel. I began at the ligament of Treitz and ran the small bowel distally. There were innumerable carcinomatosis implants primarily along the mesentery of the small bowel. In several areas, the small bowel was contorted and twisted upon itself, but these did not appear to be obstructive locations. I traced the small bowel distally until I arrived to the area of further malignancy, where the small intestine was very dilated proximally and distally it was nondilated consistent with a transition zone obstruction clearly caused by the malignancy. Just proximal to this, there was a perforation on the antimesenteric segment of dilated small bowel. The perforation was only about 3 mm in diameter. This was repaired with 4 interrupted sutures of 3-0 silk. Due to the extensive malignancy, I decided not to resect the obstruction, but instead just to bypass it. I created a ugfw-co-vegm anastomosis between the dilated and the decompressed small bowel proximal and distal to the obstruction. This was done with a JEANETTE 75 stapler and the common enterotomy was closed with a transverse firing of the same stapler. The staple line was buttressed. No attempt was made to close the mesenteric defect. The anastomosis appeared to be widely patent. The bowel was dropped back down the abdominal cavity. The abdominal cavity was irrigated with 3 L of warm saline. All irrigant was aspirated. Two sheets of Seprafilm were placed under the fascia and the fascia was closed with running suture of looped #1 PDS. The subcutaneous tissue was irrigated and then the skin edges were approximated with interrupted skin raymond and Telfa sharan were placed between the raymond. Dry gauze dress was placed externally. There were no complications. The patient had tolerated the procedure well. It was anticipated he would be extubated, but he was going to be transferred to the intensive care unit for postoperative monitoring. Job ID: [id number]
[2020-01-15] MEDS: Piperacillin/Tazobactam 3.375 GM in Sodium Chloride 0.9% 100 ML IVPB SCH ×2 (17:10→23:16)
--- NOTE | 2020-01-15 17:48 | CON ---
DATE OF CONSULTATION: 01/15/2020 CONSULTING PHYSICIAN: ICU protocol. HISTORY OF PRESENT ILLNESS: This is a 74-year-old male with peritoneal carcinomatosis, who was admitted with small bowel obstruction. He was taken to the OR earlier today because of perforation. See operative note in chart. He was placed in the ICU afterwards. He is extubated, seems to be doing relatively well all things considered. He does not have any physical complaints at this time. PAST MEDICAL HISTORY: 1. Hypertension. 2. Hyperlipidemia. PAST SURGICAL HISTORY: Diverting colostomy. SOCIAL HISTORY: Quit smoking in 2011. Does not consume alcohol. ALLERGIES: NONE. FAMILY MEDICAL HISTORY: Unremarkable. MEDICATIONS: Prior to admission; 1. Lisinopril. 2. Aspirin. 3. Protonix. 4. Metoprolol. 5. Furosemide. 6. Atorvastatin. Current inpatient medications - reviewed, see chart. REVIEW OF SYSTEMS: Remarkable for weight loss, nausea, and vomiting. PHYSICAL EXAMINATION: VITAL SIGNS: Temperature 98.5, pulse 99, O2 saturation 100%, blood pressure 124/77, and respiratory rate 20. GENERAL: He is a cachectic-appearing male, who is in no visible distress. HEENT: Unremarkable. NECK: No adenopathy or JVD. LUNGS: Clear anteriorly. CARDIOVASCULAR: S1 and S2. Regular. ABDOMEN: Colostomy noted. Midline surgical dressing noted. EXTREMITIES: Severe muscle wasting without cyanosis or edema. LABORATORY DATA: White blood cell count 3.1, hematocrit 34.6, and platelet count 242. Sodium 132, potassium 4.8, chloride 106, CO2 of 21, BUN 32, creatinine 0.7, and glucose 81. ASSESSMENT: Postop from bowel perforation, clinically doing well. PLAN: The patient is currently on antibiotics, pain medication, and TPN. Nothing at this time. We will follow while patient is in ICU. Job ID: [id number]
[2020-01-15] MEDS: Sodium Chloride 0.9% 1,000 ML IV SCH (18:00)
[2020-01-15] MEDS: FAT EMULSION IV SCH ×2 (22:00)
[2020-01-15] MEDS: [UNRECOGNIZED DRUG - OTHER] IV SCH (22:00)
[2020-01-15] MEDS: [UNRECOGNIZED DRUG - OTHER] IV SCH (22:00)
[2020-01-15] MEDS: SODIUM ACETATE IV SCH ×2 (22:00)
[2020-01-15] MEDS: SODIUM CHLORIDE IV SCH ×2 (22:00)
[2020-01-16 04:56] LABS: ALT (SGPT) 8 U/L (8-55); AST (SGOT) 15 U/L (5-34); Albumin 2.3 g/dL (3.4-4.8); Alkaline Phosphatase 45 U/L (40-110); Anion Gap 10 mmol/L (10-20); BUN (Urea Nitrogen) 30 mg/dL (8.4-25.7); Bilirubin, Total 0.6 mg/dL (0.2-1.2); Calc. Creatinine Clearance 80 mL/min (70-130); Carbon Dioxide 20 mmol/L (23-31); Chloride 109 mmol/L (98-107); Estimated GFR-MDRD Greater than 90; Globulin 1.9 g/dL (2.4-3.5); Glucose 117 mg/dL (83-110); Magnesium 1.7 mg/dL (1.6-2.6); Potassium 4.5 mmol/L (3.5-5.1); Protein, Total 4.2 g/dL (5.8-8.1); Sodium 134 mmol/L (136-145)
[2020-01-16 05:04] LABS: Phosphorus 2.6 mg/dL (2.3-4.7)
[2020-01-16] MEDS: Piperacillin/Tazobactam 3.375 GM in Sodium Chloride 0.9% 100 ML IVPB SCH ×4 (05:04→22:52)
[2020-01-16 05:55] LABS: Anisocytosis SLIGHT = 6-15 cells (100X) (0-5/hpf); Band 59 % (5-11); Elliptocytes SLIGHT = 2-5 cells (100X) (0-1/hpf); Lymphocytes 13 % (21-51); MDiff Complete? YES; Mean Corpuscular HGB CONC 31.3 g/dL (32.0-36.0); Mean Corpuscular Hemoglobin 27.5 pg (27.0-31.0); Mean Corpuscular Volume 87.9 fL (78.0-98.0); Mean Platelet Volume 7.9 fL (7.4-10.4); Metamyelocyte 2 % (0-0); Monocytes 7 % (0-10); Neutrophil 19 % (42-75); Platelet Count 186 thou/uL (130-400); Poikilocytosis SLIGHT = 6-15 cells (100X) (0-5/hpf); RBC Distribution Width 14.2 % (11.5-14.5); Red Blood Cell (RBC) Count 3.26 mill/uL (4.70-6.10); White Blood Cell (WBC) Count 7.9 thou/uL (4.8-10.8)
--- NOTE | 2020-01-16 08:11 | PRG ---
DATE OF SERVICE: SUBJECTIVE: Patient is doing well, has complaints of cough. OBJECTIVE: VITAL SIGNS: Temperature 98.9, pulse 97, blood pressure 124/67, and O2 saturation 100%. HEENT: Unremarkable. NECK: No adenopathy or JVD. LUNGS: Clear. CARDIAC: S1, S2. Regular. ABDOMEN: Soft. EXTREMITIES: No clubbing or cyanosis. Severe muscle wasting. His surgical wound has some blood on the bandage, but overall the area around is soft and nontender. LABORATORIES: White blood cell count 7.9, hematocrit 28.6, and platelet count 186. Sodium 134, potassium 4.5, chloride 109, CO2 of 20, BUN 30, creatinine 0.7, and glucose 117. ASSESSMENT: 1. Status post laparotomy. 2. Colon cancer. 3. Cough with excess secretions. PLAN: I will make his nebulized medications scheduled when he is able to take oral medication. We will consider Robitussin DM. He is stable for transfer to the floor. Job ID: [id number]
[2020-01-16] MEDS: Enoxaparin Sodium 30 MG/0.3 ML SYRINGE SC SCH (09:53)
[2020-01-16] MEDS: Famotidine/PF 20 mg/2ml Vial SLOW IVP SCH ×2 (09:53→21:04)
--- NOTE | 2020-01-16 09:53 | PRG ---
DATE OF SERVICE: 01/16/2020 SUBJECTIVE: Mr. Dao is postoperative day #1 from exploratory laparotomy, drainage of over 1500 mL of intraabdominal contents, repair of small-bowel perforation, and bypass of a malignant obstruction. He is resting in his bed in the intensive care unit. He was observed here overnight secondary to the possibility of sepsis. He has stabilized substantially since before the surgery. His heart rate prior to surgery was 120 and his heart rate this morning is 96. He has been hemodynamically stable overnight. He still has a nasogastric tube in place. He notes that he has some abdominal pain and feels weak. OBJECTIVE: VITAL SIGNS: He is afebrile. Pulse 97, blood pressure 124/67, oxygen saturation is 100%. His urine output overnight was 1300 mL. LUNGS: Clear to auscultation. ABDOMEN: Silent. Dressing is intact. Ostomy is viable with no output. LABORATORY DATA: CBC shows white blood cell count is 7.9, hemoglobin of 9, platelet count is 186. He has 59% bands. His chemistry profile shows his sodium is a little low at 134 and chloride is a little high at 109. His CO2 is a little bit low at 20. His magnesium and phosphorus are normal. His albumin is diminished at 2.3 and his pre-albumin remains low at 5.0 in spite of TPN. ASSESSMENT AND PLAN: The patient has widely metastatic obviously incurable diffuse intraabdominal malignancy. I briefly discussed this with the patient. I told him that I did not feel that this cancer was amenable to a cure even with chemotherapy and felt that he was high risk for having further bowel obstruction. I recommend that chemotherapy be discontinued and that he consider hospice. This seemed to be a surprise to him and I am not certain to what extent this has been discussed with him previously. He is hemodynamically stable and will be transferred to the surgical floor. Nasogastric tube will be continued as well as his total parenteral nutrition. Hopefully, he will begin to ambulate with a walking program. My hopes are that his obstruction and ileus will resolve and that we may resume oral intake and eventually discharge him home. Job ID: [id number]
[2020-01-16] MEDS: Sodium Chloride 0.9% 1,000 ML IV SCH (13:00)
--- NOTE | 2020-01-16 16:37 | PDOC.PALCO ---
Palliative Care Consult - Consult Details Requesting Physician: Dr Loera Reason for Consult: goals of care, complex decision-making - Pertinent HPI 74 year old male who presented to the emergency room in [place] for abdominal distention and no ostomy output in 24 hours. Abdominal swelling, no fever, vomiting. He was previously treated at the [facility] for metastatic colon adenocarcinoma. Initial presentation in 08/2019 with abdominal pain. Confirms 35+ lb weight loss. After evaluation at [place] emergency room he was transferred to [facility] and Dr Loera performed an exploratory laparotomy, draining over 1500ml of intraabdominal contents, repaired small bowel perforation and bypassed malignant obstruction. He was monitored in CCU in consideration of potential sepsis, now on medical floor. over 50 years, lives independently with his . - Pertinent PMH Metastatic colon cancer, HTN, HDL, Small Bowel obstruction - Social History Smoking Status: Former smoker Smoking: cigarettes Alcohol Use: none Drug Use History: none Living Situation: - Medications MAR Reviewed: Yes - Allergies Allergies/Adverse Reactions: Allergies Allergy/AdvReac Type Severity Reaction Status Date / Time No Known Allergies Allergy Unverified 01/11/20 01:11 - Subjective Resting, denies pain at rest. States pain increases when he coughs. - ROS Constitutional: alert, weakness, weight changes ENT: alteration in dentition, difficulty swallowing Respiratory: other (weak cough) Gastrointestinal: abdominal pain Musculoskeletal: other (denies pain to extremities) Neurological: other (denies numbness or incoordination) Skin: other (ostomy, abdominal surgical wound) - Objective Vital Signs: Vital Signs - Most Recent Temp Pulse Resp BP Pulse Ox 98.3 F 104 H 16 111/67 95 01/16/20 15:03 01/16/20 15:03 01/16/20 15:03 01/16/20 15:03 01/16/20 15:03 Palliative Performance Scale: 40 - Physical Exam Constitutional: cachectic, ill appearing HEENT: EOMI, sclera anicteric Respiratory: unlabored breathing, cough Gastrointestinal: soft, colostomy Genitourinary: gavin catheter Musculoskeletal: no cyanosis, no clubbing, pulses present Neurology: moves all 4 limbs, no focal deficits Skin: cap refill <2 seconds Deviation from normal: surgical wound Psychiatric: A&O x 3 - Problem List (1) Physical deconditioning Code(s): R53.81 - OTHER MALAISE Current Visit: Yes Status: Acute (2) Palliative care encounter Code(s): Z51.5 - ENCOUNTER FOR PALLIATIVE CARE Current Visit: Yes Status: Acute (3) Emaciated Code(s): E41 - NUTRITIONAL MARASMUS Current Visit: Yes Status: Acute (4) Metastatic adenocarcinoma Code(s): C79.9 - SECONDARY MALIGNANT NEOPLASM OF UNSPECIFIED SITE Current Visit: Yes Status: Acute (5) Small bowel obstruction Code(s): K56.609 - UNSP INTESTNL OBST, UNSP TO PARTIAL VERSUS COMPLETE OBST Current Visit: Yes Status: Acute - Plan/Recommendations Plan: Introduced Palliative Care to patient. Discussed his life, from [place] has lived in the [facility] by [facility] "A long time" He has been over 50 years and has multiple grandchildren who call him [employer]. States being with his family is most important. We discussed his cancer diagnosis, and wishes. He states he is overwhelmed. Emotional support offered. Palliative Care will follow up 01/16 with a meeting with he and his at 1pm. Will address Goal of care and resuscitation status. Nehal also refer to [employer] RNcorrectional officer sergeant notes in note section Spiritual care consult placed [75] minutes spent on this encounter with >50% of the time in counseling and coordination of care. Thank you for this very appropriate consult.
[2020-01-16] MEDS: FAT EMULSION IV SCH (22:52)
[2020-01-16] MEDS: [UNRECOGNIZED DRUG - OTHER] IV SCH (22:52)
[2020-01-16] MEDS: SODIUM CHLORIDE IV SCH (22:52)
[2020-01-16] MEDS: SODIUM ACETATE IV SCH (22:52)
[2020-01-17] MEDS: Piperacillin/Tazobactam 3.375 GM in Sodium Chloride 0.9% 100 ML IVPB SCH ×4 (04:39→22:23)
[2020-01-17 06:01] LABS: ALT (SGPT) 10 U/L (8-55); AST (SGOT) 14 U/L (5-34); Albumin 2.1 g/dL (3.4-4.8); Alkaline Phosphatase 63 U/L (40-110); Anion Gap 9 mmol/L (10-20); BUN (Urea Nitrogen) 27 mg/dL (8.4-25.7); Bilirubin, Total 0.4 mg/dL (0.2-1.2); Calc. Creatinine Clearance 85 mL/min (70-130); Calcium 8.5 mg/dL (7.8-10.44); Carbon Dioxide 24 mmol/L (23-31); Chloride 108 mmol/L (98-107); Estimated GFR-MDRD Greater than 90; Globulin 2.2 g/dL (2.4-3.5); Glucose 103 mg/dL (83-110); Potassium 3.8 mmol/L (3.5-5.1); Protein, Total 4.3 g/dL (5.8-8.1); Sodium 137 mmol/L (136-145)
[2020-01-17 06:37] LABS: Hemoglobin 9.5 g/dL (14.0-18.0); Mean Corpuscular HGB CONC 32.6 g/dL (32.0-36.0); Mean Corpuscular Hemoglobin 28.4 pg (27.0-31.0); Mean Corpuscular Volume 87.1 fL (78.0-98.0); Mean Platelet Volume 8.9 fL (7.4-10.4); Platelet Count 133 thou/uL (130-400); RBC Distribution Width 14.3 % (11.5-14.5); Red Blood Cell (RBC) Count 3.35 mill/uL (4.70-6.10)
[2020-01-17 06:51] LABS: Band 28 % (5-11); Elliptocytes SLIGHT = 2-5 cells (100X) (0-1/hpf); Lymphocytes 2 % (21-51); MDiff Complete? YES; Monocytes 10 % (0-10); Neutrophil 60 % (42-75); Toxic Granulation SLIGHT
[2020-01-17] MEDS ORDERED: Furosemide 20 MG/2 ML VIAL SLOW IVP SCH (07:30)
[2020-01-17] MEDS: Famotidine/PF 20 mg/2ml Vial SLOW IVP SCH ×2 (08:03→22:23)
[2020-01-17] MEDS: Enoxaparin Sodium 30 MG/0.3 ML SYRINGE SC SCH (08:04)
[2020-01-17] MEDS: Sodium Chloride 0.9% 1,000 ML IV SCH (08:04)
--- NOTE | 2020-01-17 08:52 | RAD ---
RADIOGRAPH CHEST 1 VIEW: DATE: 01/17/2020 HISTORY: 74-year-old male with cough COMPARISON: 01/15/2020 FINDINGS: There are no airspace densities, pulmonary edema, pneumothorax, or cardiomegaly. The lateral costophr enic angles are sharp. Again noted is the large volume of free intraperitoneal air breasts is Dr. Dickinson had already notified the nurse 2 days ago of this. Right IJ implantable vascular access port, l eft-sided PICC, and esophagogastric tube, remain. IMPRESSION: 1. Large volume of pneumoperitoneum. It is presumed that the patient has had recent abdominal surgery to explain this. Otherwise, this indicates perforated viscus. 2. No acute cardiopulmonary findings. 3. No interval change overall.
--- NOTE | 2020-01-17 08:53 | RAD ---
Exam: One view abdomen HISTORY: Confirm NG tube placement. Small bowel obstruction. Status post bypass. COMPARISON: 01/13/2020 FINDINGS: Redemonstration multiple air-filled loops of small bowel. There does appear to be air in th e stomach and in the right hemicolon. Differential considerations include a developing ileus or partial obstruction. Continued surveillance is recommended. Pneumoperitoneum is best demonstrated on the portable chest radiograph. Nasogastric tube terminates in the stomach. There does appear to be an ostomy projecting over the left lower quadrant. IMPRESSION: Prominent air-filled loops of small bowel representing a developing ileus versus partial small bowel obstruction. Continued surveillance is recommended.
[2020-01-17 09:28] LABS: Magnesium 1.7 mg/dL (1.6-2.6); Phosphorus 2.7 mg/dL (2.3-4.7)
[2020-01-17 09:33] LABS: Troponin I Less than 0.010 ng/mL (< 0.028)
[2020-01-17] MEDS ORDERED: Iopamidol-370 76% 500 ML 1 ML ONE (09:43)
[2020-01-17] MEDS ORDERED: Iopamidol 370 76% 50 ML VIAL FS ONE (09:43)
--- NOTE | 2020-01-17 09:56 | PDOC.GSPN ---
Surgery Progress Note: Subj - Subjective Narrative: Subjective: Patient states that his abdominal pain is about the same. He denies any nausea. No output through his ostomy. Objective: He is significantly tachycardic. He received a dose of Lasix due to suspected fluid overload and had about 250 mL's of urine output immediately after but his tachycardia has not improved. Clinically he does not appear to be edematous or fluid overloaded. His lungs are clear and his skin turgor is normal to slightly diminished. His white count has gone up a little although his bandemia has improved. His abdomen looks a little distended. No drainage on the dressings. Moderate abdominal tenderness to palpation but no rigidity rebound or guarding. No bowel sounds. EKG shows sinus tachycardia and portable chest x-ray showed a large amount of free air and distention of the stomach and thickened proximal small bowel. 500 mL of urine output on the retail shift supervisor, although this was documented under the dayshift output since it was put in at 730. He has had about another 500 since then. No NG output as the NG was clamped overnight. Assessment/plan: Worsening tachycardia since this morning. This was fairly sudden in onset and he has a large amount of free air on chest x-ray. Although the free air could be due to recent laparotomy, I am concerned about the possibility of perforation. The amount of air does seem to be more than I would anticipate 2 days after laparotomy. In addition his stomach and proximal small bowel were fairly distended with gas. The NG was clamped overnight due to an old communication order from preoperative which was renewed on his transfer to the floor. I placed the NG back to suction and immediately got 700 mL of bilious output. He did look a little less distended afterwards. I have ordered a CT of the abdomen and pelvis with oral and IV contrast and the nurses are to call after that is completed. I also ordered some cardiac labs but I do not think that his tachycardia is primarily cardiac. Dr. Loera is on-call today and will follow-up on the results. Surgery Progress Note: Obj - Vital signs Vital signs: Vital Signs - Most Recent Temp Pulse Resp BP Pulse Ox 97.6 F 152 H 14 126/79 93 L 01/17/20 07:48 01/17/20 07:48 01/17/20 07:48 01/17/20 07:48 01/17/20 07:48 Surgery Progress Note: Results - Labs Result Diagrams: 01/17/20 06:15 01/17/20 05:00 Lab results: Laboratory Results - last 24 hr 01/16/20 01/17/20 01/17/20 07:37 05:00 05:00 WBC RBC Hgb Hct MCV MCH MCHC RDW Plt Count MPV Neutrophils % (Manual) Band Neuts % (Manual) Lymphocytes % (Manual) Monocytes % (Manual) Lymphocytes # Toxic Granulation Elliptocytes Acanthocytes (Spur) Sodium 137 Potassium 3.8 Chloride 108 H Carbon Dioxide 24 Anion Gap 9 L BUN 27 H Creatinine 0.66 L Estimated GFR (MDRD) Greater than 90 Glucose 103 POC Glucose 149 H Calcium 8.5 Phosphorus Magnesium Total Bilirubin 0.4 AST 14 ALT 10 Alkaline Phosphatase 63 Troponin I B-Natriuretic Peptide Serum Total Protein 4.3 L Albumin 2.1 L Globulin 2.2 L Albumin/Globulin Ratio 1.0 L Prealbumin Less than 5.0 L 01/17/20 01/17/20 01/17/20 05:13 06:15 09:06 WBC 11.0 H RBC 3.35 L Hgb 9.5 L Hct 29.1 L MCV 87.1 MCH 28.4 MCHC 32.6 RDW 14.3 Plt Count 133 MPV 8.9 Neutrophils % (Manual) 60 Band Neuts % (Manual) 28 H Lymphocytes % (Manual) 2 L Monocytes % (Manual) 10 Lymphocytes # Not Reportable Toxic Granulation SLIGHT Elliptocytes SLIGHT = 2-5 cells Acanthocytes (Spur) MODERATE= 6-15 cells H Sodium Potassium Chloride Carbon Dioxide Anion Gap BUN Creatinine Estimated GFR (MDRD) Glucose POC Glucose 109 Calcium Phosphorus Magnesium Total Bilirubin AST ALT Alkaline Phosphatase Troponin I Less than 0.010 B-Natriuretic Peptide Serum Total Protein Albumin Globulin Albumin/Globulin Ratio Prealbumin 01/17/20 01/17/20 09:06 09:06 WBC RBC Hgb Hct MCV MCH MCHC RDW Plt Count MPV Neutrophils % (Manual) Band Neuts % (Manual) Lymphocytes % (Manual) Monocytes % (Manual) Lymphocytes # Toxic Granulation Elliptocytes Acanthocytes (Spur) Sodium Potassium Chloride Carbon Dioxide Anion Gap BUN Creatinine Estimated GFR (MDRD) Glucose POC Glucose Calcium Phosphorus 2.7 Magnesium 1.7 Total Bilirubin AST ALT Alkaline Phosphatase Troponin I B-Natriuretic Peptide 247.1 H Serum Total Protein Albumin Globulin Albumin/Globulin Ratio Prealbumin
[2020-01-17] MEDS ORDERED: Esmolol 100 MG/10 ML VIAL ONE (11:02)
[2020-01-17] MEDS ORDERED: Succinylcholine Chloride 20 MG/ML 10 ml SYRINGE FS ONE (11:02)
[2020-01-17] MEDS ORDERED: Rocuronium Bromide 10 MG/ML (10ML VIAL) ONE (11:02)
[2020-01-17] MEDS ORDERED: PROPOFOL 200 MG/20 ML VIAL ONE (11:02)
[2020-01-17] MEDS ORDERED: Lidocaine 1% PF 5 ML VIAL ONE (11:02)
[2020-01-17] MEDS ORDERED: PHENYLEPHRINE-NS 100 MCG/ML 10 ML SYRINGE ONE (11:02)
--- NOTE | 2020-01-17 12:46 | CT ---
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 COMPARISON: 01/10/2020 TECHNIQUE: IV injection of iodinated contrast media: Isovue. Oral contrast media:Oral Isovue FINDINGS: There are midline skin raymond now. New finding of large volume of free intraperitoneal air. New very small bilateral pleural effusions with adjacent passive atelectasis. New finding of moderate amount of free fluid within the upper aspect of the abdominal cavity. Combination of diffuse mesenteric and retroperitoneal edema, lack of visceral fat, and anasarca, make s it difficult to distinguish free fluid from edematous fat both within the abdominal cavity and external to the abdominal cavity. The small bowel loops are now less dilated than before. There bob nues to be multiple dilated small bowel loops with air-fluid levels throughout the abdominal cavity and pelvic cavity. However, there is now a new finding of diffuse mural thickening and fold thickenin g throughout these bowel loops. The colon is not dilated, but it does have mural thickening. There is also mural thickening of the urinary bladder diffusely. There is a Bermudez catheter. No large focal solid mass in the liver. No hepatosplenomegaly. Atherosclerosis without aneurysm of ab dominal aorta and its branches. Normal-appearing kidneys. Unremarkable pancreas (except for minimal dilation of pancreatic duct). No adrenal mass. Thin curvilinear hyperdensity along with contents of t he peritoneal cavity protrude through a defect in the anterior abdominal wall to the left of midline, unchanged. Exact etiology uncertain. No compelling evidence of extravasation of oral contras t material IMPRESSION: 1) very recently status post laparotomy, which explains the large volume of pneumoperitoneum. 2) new finding of diffuse enterocolitis. 3) small to moderate volume of free fluid within abdominal cavity. 4) small pleural effusions.
[2020-01-17] MEDS ORDERED: Fentanyl 100 MCG/2 ML VIAL ONE (13:04)
[2020-01-17] MEDS ORDERED: Phenylephrine 10 MG/ML VIAL ONE (13:19)
[2020-01-17] MEDS ORDERED: Promethazine HCl 25 MG/ML VIAL SLOW IVP PRN (14:28)
[2020-01-17] MEDS ORDERED: Ondansetron HCl/PF 4 MG/2 ML Vial IVP PRN (14:28)
[2020-01-17] MEDS ORDERED: Promethazine HCl 25 MG/ML VIAL IM PRN (14:28)
[2020-01-17 15:37] LABS: Actual Bicarbonate (HCO3a) 21.1 mEq/L (22-28); Base Excess (BEa) -4.1 mEq/L (-2.0 to +3.0); CO2 Tension 39.1 mmHg (35.0-45.0); Calcium, Ionized 1.24 mmol/L (1.12-1.30); Carboxyhemoglobin (COHb) 0.6 gm% (0.0-3.0); O2 Tension (PaO2) 176.2 mmHg (> 70.0); Potassium - ABG Lab 3.55 mmol/L (3.70-5.30); pH, Arterial 7.35 (7.35-7.45)
[2020-01-17 15:38] LABS: ALV-art Gradient 95.775 (0-20); Puncture Site RR
[2020-01-17] MEDS ORDERED: Labetalol HCl 100 MG/20 ML VIAL ONE (15:50)
[2020-01-17] MEDS: hydrALAZINE 20 MG/ML VIAL SLOW IVP PRN (16:47)
[2020-01-17] MEDS ORDERED: Enoxaparin Sodium 60 MG/0.6 ML SYRINGE SC SCH (18:15)
[2020-01-17] MEDS: FAT EMULSION IV SCH (22:37)
[2020-01-17] MEDS: [UNRECOGNIZED DRUG - OTHER] IV SCH (22:37)
[2020-01-17] MEDS: SODIUM CHLORIDE IV SCH (22:37)
[2020-01-17] MEDS: SODIUM ACETATE IV SCH (22:37)
[2020-01-18] MEDS: Piperacillin/Tazobactam 3.375 GM in Sodium Chloride 0.9% 100 ML IVPB SCH ×4 (04:05→23:20)
[2020-01-18 04:40] LABS: #Lymphocytes 0.6 thou/uL (1.20-3.40); #Monocytes 0.8 thou/uL (0.11-0.59); #Neutrophils 8.3 thou/uL (1.40-6.50); %Basophils 0.1 % (0.0-1.0); %Eosinophils 0.2 % (0.0-10.0); %Lymphocytes 5.9 % (21.0-51.0); %Monocytes 8.6 % (0.0-10.0); %Neutrophils 85.2 % (42.0-75.0); Hemoglobin 9.1 g/dL (14.0-18.0); Mean Corpuscular HGB CONC 30.3 g/dL (32.0-36.0); Mean Corpuscular Hemoglobin 26.8 pg (27.0-31.0); Mean Corpuscular Volume 88.5 fL (78.0-98.0); Mean Platelet Volume 9.2 fL (7.4-10.4); Platelet Count 196 thou/uL (130-400); RBC Distribution Width 14.2 % (11.5-14.5); Red Blood Cell (RBC) Count 3.39 mill/uL (4.70-6.10); White Blood Cell (WBC) Count 9.7 thou/uL (4.8-10.8)
[2020-01-18 05:00] LABS: Anion Gap 8 mmol/L (10-20); BUN (Urea Nitrogen) 28 mg/dL (8.4-25.7); Calc. Creatinine Clearance 82 mL/min (70-130); Calcium 8.5 mg/dL (7.8-10.44); Carbon Dioxide 26 mmol/L (23-31); Chloride 109 mmol/L (98-107); Estimated GFR-MDRD Greater than 90; Glucose 131 mg/dL (83-110); Potassium 3.4 mmol/L (3.5-5.1); Sodium 140 mmol/L (136-145)
[2020-01-18] MEDS: Sodium Chloride 0.9% 1,000 ML IV SCH (05:10)
--- NOTE | 2020-01-18 06:08 | EKG ---
Test Reason : STAT Blood Pressure : / mmHG Vent. Rate : 137 BPM Atrial Rate : 138 BPM P-R Int : 148 ms QRS Dur : 082 ms QT Int : 308 ms P-R-T Axes : 000 -59 066 degrees QTc Int : 465 ms Sinus tachycardia Left anterior fascicular block Abnormal ECG No previous ECGs available Confirmed by DR. Christopher MORTON ([id number]) on 01/18/2020 6:08:11 AM Referred By: CRISTIAN RECIO Confirmed By:DR. Christopher MORTON
--- NOTE | 2020-01-18 08:15 | PRG ---
DATE OF SERVICE: 01/18/2020 SUBJECTIVE: Mr. Dao is postoperative day #1 from a reexploration of his laparotomy. His initial laparotomy was 3 days ago. He has a malignant obstruction and had a perforated small bowel proximal to the obstruction. Yesterday, he developed significant tachycardia and CT scan demonstrated air and fluid within the abdomen. I explored him to make sure that there was not a leak from one of the operative sites. No leak was found. The patient was washed out. A drain was placed. The patient was placed in the intensive care unit as he had been tachycardic up to a rate of 150 before surgery. He has been stable overnight. He looks weak, but is alert and complains of appropriate pain. OBJECTIVE: VITAL SIGNS: He is afebrile. His pulse is 90, blood pressure 130/76, and oxygen saturation is 100%. His urine output was 2300 mL for yesterday. His abdominal drain is draining additional 330 mL. LUNGS: Clear to auscultation. ABDOMEN: Has dressing intact. There is no ostomy output. Bowel sounds are present surprisingly, but hypoactive. LABORATORY DATA: CBC shows white blood cell count of 9.7 with a hemoglobin of 9.1, platelet count is 196. His electrolytes show that his potassium is a little bit low at 3.4, chloride is a little elevated at 109. Creatinine is normal at 0.7, glucose is well controlled. ASSESSMENT: The patient is currently stable following the laparotomy and reexploration. He will be transferred to the surgical floor today. I would encourage activity as tolerated. Walking program has been consulted. We will continue his intravenous Zosyn and his TPN. Palliative Care has been consulted and I hope to arrange a hospice for him prior to discharge. The DNR status has not yet been discussed with him as he does not seem in the mental frame to discuss this at this point. He does know that his cancer is incurable and that I have recommended that he have no further chemotherapy. Job ID: [id number]
--- NOTE | 2020-01-18 08:52 | PRG ---
DATE OF SERVICE: 01/18/2020 SUBJECTIVE: Dr. Loera asked me to see the patient again this morning. He was brought back to the ICU yesterday tachycardic, had to have repeat laparotomy, which is unrevealing. It sounds like his NG tube got clamped and pressure built up. Tachycardia seemed to resolve fairly quickly. OBJECTIVE: VITAL SIGNS: Temperature 98.8, pulse 90, blood pressure 130/76, and O2 sat 100%. HEENT: Unremarkable. NECK: No adenopathy or JVD. CARDIAC: S1 and S2, now regular. LUNGS: Clear. ABDOMEN: Softer. EXTREMITIES: Severe muscle wasting. LABORATORY DATA: White blood cell count 9.7, hematocrit 30, and platelet count 196. Sodium 140, potassium 3.4, chloride 109, CO2 of 26, BUN 28, creatinine 0.6, and glucose 131. ASSESSMENT: Metastatic colon cancer with small bowel obstruction, which has been treated with intestinal bypass. PLAN: Tachycardia seems to resolve. If it returns, then we will entertain further workup such as pulmonary embolism. The patient's prognosis is quite dismal. Job ID: [id number]
[2020-01-18] MEDS: Enoxaparin Sodium 30 MG/0.3 ML SYRINGE SC SCH (09:55)
[2020-01-18] MEDS: Famotidine/PF 20 mg/2ml Vial SLOW IVP SCH ×2 (09:55→22:26)
[2020-01-18] MEDS: Morphine 2 MG/ML SYRINGE SLOW IVP PRN (10:11)
[2020-01-18] MEDS ORDERED: Potassium Chloride 20 MEQ in Lactated Ringer's 1,000 ML IV SCH (11:15)
--- NOTE | 2020-01-18 19:12 | CON ---
DATE OF CONSULTATION: 01/18/2020 REASON FOR CONSULTATION: Arrhythmia. HISTORY OF PRESENT ILLNESS: Mr. Dao is a very pleasant 74-year-old gentleman, who comes to the hospital for small bowel obstruction. He is admitted by Dr. Loera and taken eventually to the OR for bowel obstruction. He has a history of metastatic colon cancer and diagnosed at [facility] and he has been on chemotherapy. He has stage IV metastatic colon cancer. During his admission, he has been in the ICU and monitoring has shown episodes of tachycardia, that seemed to be either atrial fibrillation versus SVT or an atrial tach, so Cardiology has been consulted for further evaluation and care. On my evaluation, Mr. Dao is unable to give me much detailed history with his heart. I do not think he has had any history significant with heart disease in the past. PAST MEDICAL HISTORY: 1. Hypertension. 2. Hyperlipidemia. 3. Stage IV metastatic colon cancer. PAST SURGICAL HISTORY: 1. Diverting colostomy. 2. Recent surgery for bowel obstruction just a few days ago. OUTPATIENT MEDICATIONS: 1. Lisinopril 40 mg a day. 2. Aspirin 81 a day. 3. Pantoprazole 40 mg a day. 4. Metoprolol 25 mg b.i.d. 5. Furosemide 20 mg a day. 6. Atorvastatin 40 mg a day. ALLERGIES: NO KNOWN DRUG ALLERGIES. SOCIAL HISTORY: Per chart review, with 3 kids. Former smoker, quit in 2011. No alcohol or drugs. FAMILY HISTORY: Noncontributory. REVIEW OF SYSTEMS: A 12-point review of systems was done and was all negative unless stated in the history of present illness; however, he is confused at times. PHYSICAL EXAMINATION: VITAL SIGNS: Temperature 98.6, pulse 98, respiratory rate 20, saturating 100% on room air, and blood pressure 135/93. GENERAL: Awake, alert, oriented to person and place, difficulty with time, in no distress. HEENT: Normocephalic and atraumatic. NECK: Supple. LUNGS: Clear. CARDIOVASCULAR: S1 and S2. No S3 or S4. On my evaluation, his heart rate was in the 70s. ABDOMEN: Positive bowel sounds. Mildly tender. EXTREMITIES: No edema. SKIN: Warm and dry. LABORATORY DATA: Laboratory work was reviewed. CBC with a white count of 9.7, hemoglobin of 9.1, hematocrit of 30, and platelet count of 196. Coags were normal on admission. Chemistries showed normal potassium throughout; however, this morning he had a potassium of 3.4, chloride 106, anion gap was 8, BUN of 28, creatinine was 0.68, and GFR greater than 90. Prealbumin was undetectable and BNP on admission was . Troponin was negative. Positive bacteria culture for E coli on peritoneal fluid and ascites fluid. EKG on admission shows sinus rhythm. Telemetry monitoring was reviewed. He has what appears to be an atrial tachycardia, cannot completely rule out 2:1 atrial flutter. I do not think he has had much in the way of AFib. This is most likely an atrial tachycardia versus a 2:1 atrial flutter. ASSESSMENT: 1. Atrial tachycardia versus 2:1 atrial flutter. Leaning more toward an atrial tachycardia. 2. Metastatic stage IV colon cancer. 3. Hypertension. 4. Hyperlipidemia. PLAN: 1. His long-term prognosis is poor at this point. He is not a good candidate for invasive interventions like A-flutter or atrial tachycardia ablation. I would treat him medically. We will plan on loading him with amiodarone at 400 mg twice a day for the next 10 days and then down to 200 mg a day for maintenance. 2. Continue his current dose of metoprolol. 3. If this was to be flutter, for stroke prophylaxis, he is not a good candidate for anticoagulation given possibility of bleeding with recent surgery. Would do aspirin alone for stroke prophylaxis. 4. We will order an echocardiogram. 5. Thank you for letting us to participate in the care of your patient. We will follow. Job ID: [id number]
[2020-01-18] MEDS ORDERED: SODIUM CHLORIDE IV SCH (22:00)
[2020-01-18] MEDS ORDERED: FAT EMULSION IV SCH (22:00)
[2020-01-18] MEDS ORDERED: [UNRECOGNIZED DRUG - OTHER] IV SCH (22:00)
[2020-01-18] MEDS ORDERED: SODIUM ACETATE IV SCH (22:00)
[2020-01-18] MEDS: FAT EMULSION IV SCH (22:16)
[2020-01-18] MEDS: SODIUM ACETATE IV SCH (22:16)
[2020-01-18] MEDS: [UNRECOGNIZED DRUG - OTHER] IV SCH (22:16)
[2020-01-18] MEDS: SODIUM CHLORIDE IV SCH (22:16)
[2020-01-18] MEDS: Metoprolol Tartrate 25 MG TAB PO SCH (22:25)
[2020-01-18] MEDS: Amiodarone 200 MG TAB PO SCH (22:26)
--- NOTE | 2020-01-19 00:05 | OP ---
DATE OF PROCEDURE: 01/17/2020 PREOPERATIVE DIAGNOSIS: Hemodynamic instability with sudden tachycardia, leukocytosis, and substantial free air and fluid within the abdomen. Suspicion of postoperative leak following surgery 2 days previously. POSTOPERATIVE DIAGNOSIS: Air and fluid within the abdomen without evidence of leak. PROCEDURE PERFORMED: Reopening of prior laparotomy with abdominal exploration, aspiration of contents, washout of abdomen, placement of intraabdominal drain, placement of Seprafilm. ANESTHESIA: General endotracheal. INDICATIONS: The patient is a 74-year-old black male. Two days previously, he was taken emergently to the operating room when he was recognized to have free air in the abdomen secondary to a small-bowel perforation proximal to a malignant obstruction. He underwent repair of bowel perforation as well as bypass of the malignant obstruction during the operation. He was doing well after that surgery when he decompensated on the morning of the second operation. He became suddenly tachycardic without apparent evidence of atrial fibrillation. It appeared that he had sinus tachycardia. He additionally had developed leukocytosis. CT scan obtained revealed evidence of a large volume of free air and fluid within the abdomen. This seemed to be out of proportion with what would be expected 2 days after his prior surgery. He was therefore taken urgently to the operating room for evaluation of suspected leak after his first surgery. DESCRIPTION OF OPERATION: Informed consent was obtained. The patient was taken to the operating room, where general endotracheal anesthesia was obtained with the patient in supine position. His left-sided colostomy was covered with an occlusive dressing and excluded from the field. Abdomen was prepped with ChloraPrep and draped in sterile fashion. The prior raymond were removed. The sutures were incised and entry was gained into the abdominal cavity. There were several 100 mL of fluid, but most of the fluid looked serosanguineous. None of it really looked enteric. I quickly identified the area of the perforation. I placed this under pressure and tension and could elicit no leak from this area. The sutures all appeared intact. I then turned my attention to the anastomosis from the prior bypass. Again, I placed this under tension and could identify no leak related to the anastomosis or the closure of the enterotomy. All sutures were intact. Fluid from within the proximal small bowel easily passed through the anastomosis. I explored the remainder of the abdomen. I exchanged his nasogastric tube. I inspected the stomach, the liver, the colon. Other than the extensive metastatic disease, which was already known, there were no other new findings. A #19 round fluted drain was placed and right side of the abdomen were secured with a 3-0 nylon suture. This passed down into the pelvis. The abdomen was irrigated with several liters of saline and all irrigant was aspirated. The fascia was closed with a running suture of looped #1 PDS. Skin edges were loosely approximated with raymond and Telfa sharan were placed between the raymond. Dry gauze dress was placed externally. There were no complications. The patient remained in stable condition throughout the operation and was taken to recovery room in stable condition. Job ID: [id number]
[2020-01-19] MEDS: Potassium Chloride 20 MEQ in Lactated Ringer's 1,000 ML IV SCH ×2 (00:09→20:24)
[2020-01-19] MEDS: Morphine 2 MG/ML SYRINGE SLOW IVP PRN ×3 (01:47→20:21)
[2020-01-19] MEDS: Piperacillin/Tazobactam 3.375 GM in Sodium Chloride 0.9% 100 ML IVPB SCH ×4 (05:01→22:14)
[2020-01-19 05:03] LABS: Anion Gap 10 mmol/L (10-20); BUN (Urea Nitrogen) 29 mg/dL (8.4-25.7); Calc. Creatinine Clearance 77 mL/min (70-130); Calcium 8.6 mg/dL (7.8-10.44); Carbon Dioxide 27 mmol/L (23-31); Chloride 110 mmol/L (98-107); Estimated GFR-MDRD Greater than 90; Glucose 129 mg/dL (83-110); Potassium 4.4 mmol/L (3.5-5.1); Sodium 143 mmol/L (136-145)
[2020-01-19 05:06] LABS: Band 7 % (5-11); Eosinophils 1 % (0-10); Hemoglobin 9.2 g/dL (14.0-18.0); Hypochromia SLIGHT = 6-15 cells (100X) (0-5/hpf); Lymphocytes 3 % (21-51); MDiff Complete? YES; Mean Corpuscular HGB CONC 30.9 g/dL (32.0-36.0); Mean Corpuscular Hemoglobin 27.3 pg (27.0-31.0); Mean Corpuscular Volume 88.5 fL (78.0-98.0); Monocytes 20 % (0-10); Neutrophil 69 % (42-75); Platelet Count 191 thou/uL (130-400); Platelet Morphology Comment Appears Adequate; RBC Distribution Width 14.2 % (11.5-14.5); Red Blood Cell (RBC) Count 3.36 mill/uL (4.70-6.10); White Blood Cell (WBC) Count 9.1 thou/uL (4.8-10.8)
[2020-01-19] MEDS: Amiodarone 200 MG TAB PO SCH ×2 (09:59→20:22)
[2020-01-19] MEDS: Famotidine/PF 20 mg/2ml Vial SLOW IVP SCH ×2 (09:59→20:20)
[2020-01-19] MEDS: Enoxaparin Sodium 30 MG/0.3 ML SYRINGE SC SCH (09:59)
[2020-01-19] MEDS: Metoprolol Tartrate 25 MG TAB PO SCH ×2 (09:59→20:22)
--- NOTE | 2020-01-19 11:51 | PRG ---
DATE OF SERVICE: 01/19/2020 SUBJECTIVE: Mr. Mittal is in no distress. He still has an NG tube in place. OBJECTIVE: GENERAL: He is extremely cachectic appearing. He is 6 feet 2 inches tall and 137 pounds. VITAL SIGNS: He is afebrile, heart rate is 94, respiratory rate is 16, oximetry is 97% on room air, and blood pressure is 155/88. LUNGS: Clear. HEART: Regular rhythm. ABDOMEN: Soft. LABORATORY DATA: White count 9.1, hemoglobin 9.2, and platelets 191. Sodium 143, potassium 4.4, chloride 110, bicarb 27, BUN 29, and creatinine 0.73. IMPRESSION: 1. Metastatic colon cancer. 2. Cachexia. 3. Deconditioning, severe weakness, appears to be stable at this time. Job ID: [id number]
--- NOTE | 2020-01-19 16:48 | PDOC.CPN ---
- Subjective Date: 01/19/20 Time: 16:45 Interval history: No new issues. No angina, no syncope. - Review of Systems General: denies: fever/chills, weight/appetite/sleep changes, night sweats, fatigue Respiratory: denies: cough, congestion, shortness of breath, exercise intolerance Cardiovascular: denies: chest pain, palpitation, edema, paroxysmal nocturnal dyspnea, orthopnea Gastrointestinal: denies: nausea, vomiting, diarrhea, constipation, abd pain, GI bleeding Musculoskeletal: denies: pain, tenderness, stiffness, swelling, arthritis/ arthralgias Neurological: denies: numbness, syncope, seizure, weakness - Objective Allergies/Adverse Reactions: Allergies Allergy/AdvReac Type Severity Reaction Status Date / Time No Known Allergies Allergy Unverified 01/11/20 01:11 Visit Medications: Current Medications Albuterol/Ipratropium (Duoneb) 3 ml NEB [id number] [facility] Last Admin: 01/19/20 14:20 Dose: 3 ml Amiodarone HCl (Cordarone) 400 mg PO BID [facility] Last Admin: 01/19/20 09:59 Dose: 400 mg Dextrose/Water (Dextrose 50%) 25 gm SLOW IVP PRN PRN PRN Reason: Hypoglycemia Enoxaparin Sodium (Lovenox) 30 mg SC 0900 [facility] Last Admin: 01/19/20 09:59 Dose: 30 mg Famotidine (Pepcid) 20 mg SLOW IVP Q12HR [facility] Last Admin: 01/19/20 09:59 Dose: 20 mg Glucagon (Glucagon) 1 mg IM PRN PRN PRN Reason: Hypoglycemia Hydralazine HCl (Apresoline) 10 mg SLOW IVP Q4H PRN PRN Reason: SBP > 170 or DBP > 100 Last Admin: 01/17/20 16:47 Dose: 10 mg Dextrose/Water (D5w) 1,000 mls @ 0 mls/hr IV .Q0M PRN PRN Reason: Hypoglycemia Piperacillin Sod/Tazobactam (Sod 3.375 gm/ Sodium Chloride) 100 mls @ 200 mls/ hr IVPB 0500,1100,1700,2300 [facility] Last Admin: 01/19/20 16:40 Dose: 100 mls Fat Emulsion Intravenous 250 ml/ Sodium Acetate 70 meq/Sodium Chloride 40 meq/ Potassium Chloride 60 meq/Potassium Phosphate 30 mmol/Calcium Gluconate 15 meq/ Magnesium Sulfate 10 meq/Multivitamins 10 ml/ Chromium/Copper/Manganese/Seleni/ Zn 1 ml/ Insulin Human Regular 20 units/ Dextrose/Water/ Amino Acids 1, 881.2717 mls @ 78.386 mls/hr IV 2200 [facility] Last Admin: 01/18/20 22:16 Dose: 1,881.2717 mls Potassium Chloride 20 meq/ (Lactated Ringer's) 1,010 mls @ 30 mls/hr IV .Q24H [facility] Last Admin: 01/19/20 00:09 Dose: 1,010 mls Insulin Human Regular (Humulin R) 0 units SC .MILD SLIDING SCALE PRN PRN Reason: Mild Correctional Scale Last Admin: 01/16/20 00:25 Dose: 2 unit Metoprolol Tartrate (Lopressor) 12.5 mg PO BID [facility] Last Admin: 01/19/20 09:59 Dose: 12.5 mg Morphine Sulfate (Morphine) 2 mg SLOW IVP Q2H PRN PRN Reason: Mild Pain (1-3) Last Admin: 01/19/20 16:41 Dose: 2 mg Morphine Sulfate (Morphine) 4 mg IV Q2H PRN PRN Reason: Severe Pain (7-10) Ondansetron HCl (Zofran) 4 mg IVP Q6H PRN PRN Reason: Nausea Sodium Chloride (Flush - Normal Saline) 10 ml IVF PRN PRN PRN Reason: Saline Flush Last Admin: 01/19/20 05:03 Dose: 10 ml Vital Signs & Weight: Vital Signs Temp Pulse Resp BP Pulse Ox 01/19/20 16:08 98 F 101 H 18 165/96 H 95 01/19/20 15:38 98 F 101 H 18 01/19/20 14:20 96 12 01/19/20 11:47 97.7 F 96 18 155/82 H 96 01/19/20 10:20 94 16 01/19/20 09:13 98 F 95 18 155/88 H 97 01/19/20 06:30 92 12 Admit Weight 138 lb 7.205 oz Weight 137 lb 9.6 oz - Physical Exam General: alert & oriented x3 HEENT: mucus membranes moist Neck: supple neck Cardiac: regular rate and rhythm Lungs: clear to auscultation Neuro: no lateralizing findings Abdomen: active bowel sounds Extremities: no edema Skin: clear Musculoskeletal: no pain - Labs Result Diagrams: 01/19/20 04:15 01/19/20 04:15 Troponin/CKMB Troponin I Less than 0.010 ng/mL (< 0.028) 01/17/20 09:06 - Telemetry Sinus rhythms and dysrhythmias: sinus rhythm - Assessment/Plan Assessment/Plan: 1. Atrial tachycardia vs 2-1 Atrial flutter. 2. Metastatic colon Ca 3. HTN 4. HLP PLAN: - Continue PO amiodarone laod at 400 mg PO BID for 9 days then 200 mg daily. - Not a good candidate for anticoagulation given recent surgery. - ASA alone for stroke prophylaxis. - Not a good candidate for ablation given his weakened state.
--- NOTE | 2020-01-19 19:17 | PRG ---
DATE OF SERVICE: 01/19/2020 SUBJECTIVE: Kyrie Dao is a 74-year-old male patient seen by Dr. Loera on 01/10/2020, undergoing 01/15/2020 laparotomy, drainage of extensive infected fluid collection, peritonitis, repair of small-bowel perforation, jejunojejunostomy bypass of malignant obstruction and the patient with known metastatic colon cancer and carcinomatosis and colostomy. The patient returned to the operating room on 01/18/[address] Loera for expiration, aspirated contents and placement of drain and Seprafilm due to hemodynamic instability and sudden tachycardia and leukocytosis and increased free air. There is no evidence of leak. The patient is resting comfortably. His pain is under good control. Gastric drainage is 200 mL in the last 24 hours. He has copious MANNY drainage of ascites fluid color, none worrisome. Urine output is good, 1195 over the past 24 hours. LABORATORY DATA: White count 9, hemoglobin 9.2. Sodium 143, potassium 4.4, . OBJECTIVE: LUNGS: Clear to auscultation. CARDIAC: Regular rate and rhythm without murmur or gallop. ABDOMEN: Soft. Colostomy healthy. EXTREMITIES: Unremarkable. No edema. ASSESSMENT AND PLAN: Carcinomatosis, malignant ascites expect copious drainage from MANNY drain. Nurses will impede as they are able but expected to will be removed soon. NG tube has little output, but there is no colostomy output. We will continue NG tube for suction for now. Output is less. He has not had flatus or bowel movement yet. Bermudez catheter was placed with copious output. We will remove his Bermudez. We will allow him to have sips and chips and hard candy, allow him to tolerate the NG tube. Today, I discussed with the patient and his , and his had questions of me leading me to discussions about code status. The patient previously was cared for at home by home health nursing. I had a discussion with the patient and his regarding DNR status. They wish to discuss this among themselves. I asked them to consider DNR status and consider hospice care once post discharge and honestly informed him of his prognosis. Job ID: [id number]
[2020-01-19] MEDS: FAT EMULSION IV SCH (21:58)
[2020-01-19] MEDS: SODIUM CHLORIDE IV SCH (21:58)
[2020-01-19] MEDS: SODIUM ACETATE IV SCH (21:58)
[2020-01-19] MEDS: [UNRECOGNIZED DRUG - OTHER] IV SCH (21:58)
[2020-01-20] MEDS: Piperacillin/Tazobactam 3.375 GM in Sodium Chloride 0.9% 100 ML IVPB SCH ×4 (05:46→22:17)
[2020-01-20] MEDS: Famotidine/PF 20 mg/2ml Vial SLOW IVP SCH ×2 (09:22→21:16)
[2020-01-20] MEDS: Enoxaparin Sodium 30 MG/0.3 ML SYRINGE SC SCH (09:22)
[2020-01-20] MEDS: Metoprolol Tartrate 25 MG TAB PO SCH ×2 (09:22→21:16)
[2020-01-20] MEDS: Amiodarone 200 MG TAB PO SCH ×2 (09:22→21:16)
--- NOTE | 2020-01-20 09:58 | PRG ---
DATE OF SERVICE: 01/20/2020 SUBJECTIVE: Kyrie Dao is doing well today. His NG tube has come out overnight. He had only put out 300 mL in last 24 hours, and in fact, I was thinking about removing it, when I walked in the room to find it out. The patient states he has passed some flatus, his abdomen feels to him a little distended, although better than preoperatively. The patient and his had discussed DNR status yesterday and the patient is inclined to DNR, but he wants to speak with his before he enacts that. Palliative Care has been asked to see him again. Accu-Cheks 128 to 114. There have been no labs drawn today. OBJECTIVE: LUNGS: Clear to auscultation. CARDIAC: Regular rate and rhythm without murmur or gallop. ABDOMEN: Soft, occasional bowel sounds. Colostomy healthy, Telfa sharan in place. MANNY drain, clear ascites fluid, 380 in the last 24 hours. Colostomy is healthy with scant stool in the bag. EXTREMITIES: Unremarkable. ASSESSMENT AND PLAN: 1. Resuming GI function, leave NG tube out. Begin clear liquids, go slowly. Remove MANNY drain. Telfa sharan out per Dr. Loera. The patient is 2 days postoperatively. These will probably come out in 2 to 3 days. 2. Discussions with DNR status. The patient is inclined to DNR, but await final discussion with his before enacting. 3. Physical Therapy and discharge planning. The patient should have physical therapy and he may require this at home or short rehab stay. We will see how he does with therapy in the next 24 to 48 hours. Job ID: [id number]
--- NOTE | 2020-01-20 13:58 | PDOC.CPN ---
- Subjective Date: 01/20/20 Time: 13:57 Interval history: No new issues. No new complaints. No angina. no SOB. - Review of Systems General: denies: fever/chills, weight/appetite/sleep changes, night sweats, fatigue Respiratory: denies: cough, congestion, shortness of breath, exercise intolerance Cardiovascular: denies: chest pain, palpitation, edema, paroxysmal nocturnal dyspnea, orthopnea Gastrointestinal: reports: abd pain. denies: nausea, vomiting, diarrhea, constipation, GI bleeding Musculoskeletal: denies: pain, tenderness, stiffness, swelling, arthritis/ arthralgias Neurological: denies: numbness, syncope, seizure, weakness - Objective Allergies/Adverse Reactions: Allergies Allergy/AdvReac Type Severity Reaction Status Date / Time No Known Allergies Allergy Unverified 01/11/20 01:11 Visit Medications: Current Medications Albuterol/Ipratropium (Duoneb) 3 ml NEB [id number] [facility] Last Admin: 01/20/20 10:45 Dose: 3 ml Amiodarone HCl (Cordarone) 400 mg PO BID [facility] Last Admin: 01/20/20 09:22 Dose: 400 mg Dextrose/Water (Dextrose 50%) 25 gm SLOW IVP PRN PRN PRN Reason: Hypoglycemia Enoxaparin Sodium (Lovenox) 30 mg SC 0900 [facility] Last Admin: 01/20/20 09:22 Dose: 30 mg Famotidine (Pepcid) 20 mg SLOW IVP Q12HR [facility] Last Admin: 01/20/20 09:22 Dose: 20 mg Glucagon (Glucagon) 1 mg IM PRN PRN PRN Reason: Hypoglycemia Hydralazine HCl (Apresoline) 10 mg SLOW IVP Q4H PRN PRN Reason: SBP > 170 or DBP > 100 Last Admin: 01/17/20 16:47 Dose: 10 mg Dextrose/Water (D5w) 1,000 mls @ 0 mls/hr IV .Q0M PRN PRN Reason: Hypoglycemia Piperacillin Sod/Tazobactam (Sod 3.375 gm/ Sodium Chloride) 100 mls @ 200 mls/ hr IVPB 0500,1100,1700,2300 [facility] Last Admin: 01/20/20 13:30 Dose: 100 mls Fat Emulsion Intravenous 250 ml/ Sodium Acetate 70 meq/Sodium Chloride 40 meq/ Potassium Chloride 60 meq/Potassium Phosphate 30 mmol/Calcium Gluconate 15 meq/ Magnesium Sulfate 10 meq/Multivitamins 10 ml/ Chromium/Copper/Manganese/Seleni/ Zn 1 ml/ Insulin Human Regular 20 units/ Dextrose/Water/ Amino Acids 1, 881.2717 mls @ 78.386 mls/hr IV 2200 [facility] Last Admin: 01/19/20 21:58 Dose: 1,881.2717 mls Potassium Chloride 20 meq/ (Lactated Ringer's) 1,010 mls @ 30 mls/hr IV .Q24H [facility] Last Admin: 01/19/20 20:24 Dose: 1,010 mls Insulin Human Regular (Humulin R) 0 units SC .MILD SLIDING SCALE PRN PRN Reason: Mild Correctional Scale Last Admin: 01/16/20 00:25 Dose: 2 unit Metoprolol Tartrate (Lopressor) 12.5 mg PO BID [facility] Last Admin: 01/20/20 09:22 Dose: 12.5 mg Morphine Sulfate (Morphine) 2 mg SLOW IVP Q2H PRN PRN Reason: Mild Pain (1-3) Last Admin: 01/19/20 20:21 Dose: 2 mg Morphine Sulfate (Morphine) 4 mg IV Q2H PRN PRN Reason: Severe Pain (7-10) Ondansetron HCl (Zofran) 4 mg IVP Q6H PRN PRN Reason: Nausea Sodium Chloride (Flush - Normal Saline) 10 ml IVF PRN PRN PRN Reason: Saline Flush Last Admin: 01/19/20 05:03 Dose: 10 ml Vital Signs & Weight: Vital Signs Temp Pulse Resp BP Pulse Ox 01/20/20 12:10 97.8 F 89 16 152/82 H 98 01/20/20 10:45 96 12 01/20/20 08:30 98.0 F 93 18 144/86 H 97 01/20/20 06:45 88 20 01/20/20 04:00 97.4 F L 98 20 166/96 H Admit Weight 138 lb 7.205 oz Weight 137 lb 9.6 oz - Physical Exam General: alert & oriented x3 HEENT: mucus membranes moist Neck: supple neck Cardiac: regular rate and rhythm Lungs: clear to auscultation Neuro: grossly intact Abdomen: active bowel sounds Extremities: no edema Skin: clear Musculoskeletal: no pain - Labs Result Diagrams: 01/19/20 04:15 01/19/20 04:15 Troponin/CKMB Troponin I Less than 0.010 ng/mL (< 0.028) 01/17/20 09:06 - Telemetry Sinus rhythms and dysrhythmias: sinus rhythm - Assessment/Plan Assessment/Plan: 1. Atrial tachycardia vs 2-1 Atrial flutter. Currently in sinus rhythm. 2. Metastatic colon Ca 3. HTN 4. HLP PLAN: - Continue PO amiodarone laod at 400 mg PO BID for 8 days then 200 mg daily. - Not a good candidate for anticoagulation given recent surgery. - ASA alone for stroke prophylaxis. - Not a good candidate for ablation given his weakened state. - May transfer to Surgical floor.
[2020-01-20] MEDS: Potassium Chloride 20 MEQ in Lactated Ringer's 1,000 ML IV SCH (18:06)
--- NOTE | 2020-01-20 19:13 | PRG ---
DATE OF SERVICE: 01/20/2020 SUBJECTIVE: Kyrie Dao has his NG tube out. OBJECTIVE: VITAL SIGNS: He is afebrile, heart rate is , respiratory rate is 20, oximetry is 98% on room air, blood pressure 144/79. LUNGS: Clear. HEART: Regular rhythm. ABDOMEN: Soft. IMPRESSION: 1. Status post laparotomy. 2. Atrial fibrillation, on amiodarone. PLAN: He is tentatively scheduled to move to surgical floor. Job ID: [id number]
[2020-01-20] MEDS: Morphine 2 MG/ML SYRINGE SLOW IVP PRN (22:17)
[2020-01-20] MEDS: FAT EMULSION IV SCH (22:17)
[2020-01-20] MEDS: [UNRECOGNIZED DRUG - OTHER] IV SCH (22:17)
[2020-01-20] MEDS: SODIUM CHLORIDE IV SCH (22:17)
[2020-01-20] MEDS: SODIUM ACETATE IV SCH (22:17)
[2020-01-21] MEDS: Piperacillin/Tazobactam 3.375 GM in Sodium Chloride 0.9% 100 ML IVPB SCH ×4 (04:55→22:20)
[2020-01-21 07:03] LABS: Anion Gap 8 mmol/L (10-20); BUN (Urea Nitrogen) 25 mg/dL (8.4-25.7); Calc. Creatinine Clearance 85 mL/min (70-130); Calcium 8.3 mg/dL (7.8-10.44); Carbon Dioxide 27 mmol/L (23-31); Chloride 110 mmol/L (98-107); Estimated GFR-MDRD Greater than 90; Glucose 78 mg/dL (83-110); Magnesium 1.8 mg/dL (1.6-2.6); Phosphorus 3.1 mg/dL (2.3-4.7); Potassium 4.4 mmol/L (3.5-5.1); Sodium 141 mmol/L (136-145)
--- NOTE | 2020-01-21 07:55 | PRG ---
DATE OF SERVICE: SUBJECTIVE: The patient is doing as well as could be expected given his underlying situation. He has no complaints of abdominal pain at this time. OBJECTIVE: VITAL SIGNS: Temperature is 98.5, pulse 82, respirations 16, O2 saturation 98% on room air, blood pressure 146/83. HEENT: Remarkable for bitemporal wasting. NECK: No adenopathy or JVD. LUNGS: Clear. CARDIAC: S1 and S2, irregular. ABDOMEN: Soft without tenderness. EXTREMITIES: No edema. LABORATORY DATA: Sodium 141, potassium 4.4, chloride 110, CO2 of 27, BUN 25, creatinine 0.6, and glucose 78. ASSESSMENT: 1. Metastatic colon cancer. 2. Status post endotracheal intubation after laparotomy. 3. Status post transient tachycardia probably related to abdominal distention in the postoperative period, which resolved spontaneously. PLAN: Continuing supportive care. The patient will probably need to be revisited by Oncology if he wants to pursue chemotherapy option. No further recommendations at this time. Job ID: [id number]
[2020-01-21] MEDS: Enoxaparin Sodium 30 MG/0.3 ML SYRINGE SC SCH (10:04)
[2020-01-21] MEDS: Famotidine/PF 20 mg/2ml Vial SLOW IVP SCH (10:05)
[2020-01-21] MEDS: Metoprolol Tartrate 25 MG TAB PO SCH ×2 (10:05→21:35)
[2020-01-21] MEDS: Amiodarone 200 MG TAB PO SCH ×2 (10:05→21:36)
[2020-01-21 12:31] VITALS: BMI 17.6
[2020-01-21 14:04] LABS: ALT (SGPT) 49 U/L (8-55); AST (SGOT) 29 U/L (5-34); Alkaline Phosphatase 96 U/L (40-110); Bilirubin, Direct 0.4 mg/dL (0.1-0.3); Bilirubin, Total 0.6 mg/dL (0.2-1.2); Protein, Total 4.8 g/dL (5.8-8.1)
--- NOTE | 2020-01-21 14:29 | PDOC.CPN ---
- Subjective Date: 01/21/20 Time: 14:27 Interval history: Denies palpitations, no chest pain, no SOB. No syncope, presyncope. - Review of Systems General: denies: fever/chills, weight/appetite/sleep changes, night sweats, fatigue Respiratory: denies: cough, congestion, shortness of breath, exercise intolerance Cardiovascular: denies: chest pain, palpitation, edema, paroxysmal nocturnal dyspnea, orthopnea Gastrointestinal: denies: nausea, vomiting, diarrhea, constipation, abd pain, GI bleeding Musculoskeletal: denies: pain, tenderness, stiffness, swelling, arthritis/ arthralgias Neurological: denies: numbness, syncope, seizure, weakness - Objective Allergies/Adverse Reactions: Allergies Allergy/AdvReac Type Severity Reaction Status Date / Time No Known Allergies Allergy Unverified 01/11/20 01:11 Visit Medications: Current Medications Albuterol/Ipratropium (Duoneb) 3 ml NEB [id number] [facility] Last Admin: 01/21/20 14:15 Dose: Not Given Amiodarone HCl (Cordarone) 400 mg PO BID [facility] Last Admin: 01/21/20 10:05 Dose: 400 mg Dextrose/Water (Dextrose 50%) 25 gm SLOW IVP PRN PRN PRN Reason: Hypoglycemia Enoxaparin Sodium (Lovenox) 30 mg SC 0900 [facility] Last Admin: 01/21/20 10:04 Dose: 30 mg Famotidine (Pepcid) 20 mg SLOW IVP Q12HR [facility] Last Admin: 01/21/20 10:05 Dose: 20 mg Glucagon (Glucagon) 1 mg IM PRN PRN PRN Reason: Hypoglycemia Hydralazine HCl (Apresoline) 10 mg SLOW IVP Q4H PRN PRN Reason: SBP > 170 or DBP > 100 Last Admin: 01/17/20 16:47 Dose: 10 mg Dextrose/Water (D5w) 1,000 mls @ 0 mls/hr IV .Q0M PRN PRN Reason: Hypoglycemia Piperacillin Sod/Tazobactam (Sod 3.375 gm/ Sodium Chloride) 100 mls @ 200 mls/ hr IVPB 0500,1100,1700,2300 [facility] Last Admin: 01/21/20 10:06 Dose: 100 mls Fat Emulsion Intravenous 250 ml/ Sodium Acetate 70 meq/Sodium Chloride 40 meq/ Potassium Chloride 60 meq/Potassium Phosphate 30 mmol/Calcium Gluconate 15 meq/ Magnesium Sulfate 10 meq/Multivitamins 10 ml/ Chromium/Copper/Manganese/Seleni/ Zn 1 ml/ Insulin Human Regular 20 units/ Dextrose/Water/ Amino Acids 1, 881.2717 mls @ 78.386 mls/hr IV 2200 [facility] Last Admin: 01/20/20 22:17 Dose: 1,881.2717 mls Potassium Chloride 20 meq/ (Lactated Ringer's) 1,010 mls @ 30 mls/hr IV .Q24H [facility] Last Admin: 01/20/20 18:06 Dose: 1,010 mls Insulin Human Regular (Humulin R) 0 units SC .MILD SLIDING SCALE PRN PRN Reason: Mild Correctional Scale Last Admin: 01/16/20 00:25 Dose: 2 unit Metoprolol Tartrate (Lopressor) 12.5 mg PO BID [facility] Last Admin: 01/21/20 10:05 Dose: 12.5 mg Morphine Sulfate (Morphine) 4 mg IV Q2H PRN PRN Reason: Severe Pain (7-10) Ondansetron HCl (Zofran) 4 mg IVP Q6H PRN PRN Reason: Nausea Sodium Chloride (Flush - Normal Saline) 10 ml IVF PRN PRN PRN Reason: Saline Flush Last Admin: 01/19/20 05:03 Dose: 10 ml Vital Signs & Weight: Vital Signs Temp Pulse Resp BP Pulse Ox 01/21/20 11:35 97.6 F 79 16 145/86 H 98 01/21/20 07:42 97.7 F 84 16 134/84 98 01/21/20 06:30 82 16 98 01/21/20 03:14 98.5 F 75 16 146/83 H 98 Admit Weight 134 lb 12.8 oz Weight 137 lb 9.6 oz - Physical Exam General: alert & oriented x3 HEENT: mucus membranes moist Neck: supple neck Cardiac: regular rate and rhythm Lungs: clear to auscultation Neuro: grossly intact Abdomen: active bowel sounds Extremities: no edema Skin: clear Musculoskeletal: no pain - Labs Result Diagrams: 01/19/20 04:15 01/21/20 06:20 Troponin/CKMB Troponin I Less than 0.010 ng/mL (< 0.028) 01/17/20 09:06 - Assessment/Plan Assessment/Plan: 1. Atrial tachycardia vs 2-1 Atrial flutter. Remains in sinus. 2. Metastatic colon Ca 3. HTN 4. HLP PLAN: - Continue PO amiodarone laod at 400 mg PO BID for 7 days then 200 mg daily. - Not a good candidate for anticoagulation given recent surgery. - ASA alone for stroke prophylaxis. - Not a good candidate for ablation given his weakened state. - EKG tomorrow. - CV stable at this time.
--- NOTE | 2020-01-21 15:06 | PRG ---
DATE OF SERVICE: 01/21/2020 SUBJECTIVE: Mr. Mittal is postoperative day #6 from his laparotomy with repair of perforation and small-bowel bypass. He is postoperative day #4 from abdominal reexploration. He had atrial fibrillation when I last saw him, and he had gone to telemetry. He was managed by Dr. Manriquez. He was placed on amiodarone and has converted out of fibrillation. He has subsequently been removed from the telemetry floor back to the surgical floor. Over the weekend, his nasogastric tube was removed, and clear liquids were started. He is tolerating that thus far. Today, he is much more grumpy than he has been during the time I have been taking care of him. He also seems to be a little confused, telling me that he is hearing multiple different stories from multiple different people. He is confusing which doctor or person has told him what. He denies any nausea or vomiting. He notes good colostomy output. He would like to go home now. OBJECTIVE: GENERAL: On examination, he is afebrile, pulse 79, and blood pressure 145/86. LUNGS: Clear to auscultation. ABDOMEN: Soft, but with hypoactive bowel sounds. Telfa sharan are still in place. His ostomy has good output of stool and gas. LABORATORY DATA: He did not have a CBC today. His chemistries from today show essentially normal electrolytes and creatinine. His liver function tests are normal. His albumin continues to drop and is now down to 2.0. This is in spite of full calorie TPN. His pre-albumin remains very low at 6.0. His phosphorus and magnesium remain normal. ASSESSMENT: I spoke with him at length at bedside with the palliative care nurse practitioner present. The patient tells me clearly that he does desire to have a DNR status. I reviewed what this means. He is grumpy during the course of explanation, but tells me that he does want DNR, and this was then acted on the chart today. He is not interested in hospice because he "doesn't like the sound of it." He is still severely malnourished and relatively weak. I am advancing his diet today up to full liquids, starting Ensure for nutritional supplementation. I will continue the TPN for another day. I would plan on the bag that is started tonight at 10 p.m. being his last bag and weaning it during the course of tomorrow. If he continues to tolerate oral intake, then I would hope for discharge on Tuesday, January 22. Discharge planning is being assisted by the palliative care team, and Ms. Kaur is seeing him currently in regard to this. Finally, I have made clear on several occasions he has unresectable incurable cancer and it is just a matter of time before he develops another malignant obstruction from this. For this reason, I would recommend against further chemotherapy and recommend comfort care. Job ID: [id number]
--- NOTE | 2020-01-21 16:44 | PDOC.PALPN ---
Palliative Progress Note - Subjective Awake, alert. Denies pain, minimal intake. Weakness, ambulated with assistance. Post op day 6 from laparotomy with repair of perforation and small bowel bypass/ day #4 of abdominal reexploration. - Objective Vital Signs: Vital Signs - Most Recent Temp Pulse Resp BP Pulse Ox 98.1 F 80 14 124/78 99 01/21/20 16:07 01/21/20 16:07 01/21/20 16:07 01/21/20 16:07 01/21/20 16:07 - Physical Exam Constitutional: cachectic, ill appearing HEENT: EOMI, moist MMs, sclera anicteric Respiratory: no wheezing, unlabored breathing Gastrointestinal: soft, non-tender, positive bowel sounds Deviation from normal: Colostomy with output. Genitourinary: continent Neurology: moves all 4 limbs, no focal deficits Skin: cap refill <2 seconds Psychiatric: normal affect - Assessment (1) Physical deconditioning Code(s): R53.81 - OTHER MALAISE Current Visit: Yes Status: Acute (2) Palliative care encounter Code(s): Z51.5 - ENCOUNTER FOR PALLIATIVE CARE Current Visit: Yes Status: Acute (3) Emaciated Code(s): E41 - NUTRITIONAL MARASMUS Current Visit: Yes Status: Acute (4) Metastatic adenocarcinoma Code(s): C79.9 - SECONDARY MALIGNANT NEOPLASM OF UNSPECIFIED SITE Current Visit: Yes Status: Acute (5) Small bowel obstruction Code(s): K56.609 - UNSP INTESTNL OBST, UNSP TO PARTIAL VERSUS COMPLETE OBST Current Visit: Yes Status: Acute - Plan Plan: Lengthy discussion with Mr Dao. Life review. 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 His is his second . His goal is to discharge as soon as possible, he states "I have loose ends to tie up ". We discussed option of home with home health/palliative care and home with hospice. He agreed to have his come 01/22/2020 to discuss a safe discharge plan that allows him independence and prevents recurrent hospitalizations. Confirmed with Dr Loera no resuscitation measures. If agreeable we will complete OOHDNAR 01/22/2020. Emotional support offered in discussing limited life expectancy. Therapeutic listening. Notified CM, and Dr Loera aware as well. Please also refer to Laurie Gomez RNtest inspection engineer notes in note section. [90] minutes spent on this encounter with >50% of the time in counseling and coordination of care. - ROS Constitutional: alert, weakness ENT: other (Denies throat pain, irritation, congestion) Respiratory: shortness of breath with extertion Cardiology: other (Denies chest pain, palpitations) Gastrointestinal: other (Denies vomiting, diarrhea) Genitourinary: other (Denies frequency, urgency) Musculoskeletal: arthritis/arthralgias
[2020-01-21] MEDS: Famotidine 20 MG TAB PO SCH (21:35)
[2020-01-21] MEDS: Potassium Chloride 20 MEQ in Lactated Ringer's 1,000 ML IV SCH (21:39)
[2020-01-21] MEDS: FAT EMULSION IV SCH (22:19)
[2020-01-21] MEDS: SODIUM ACETATE IV SCH (22:19)
[2020-01-21] MEDS: SODIUM CHLORIDE IV SCH (22:19)
[2020-01-21] MEDS: [UNRECOGNIZED DRUG - OTHER] IV SCH (22:19)
[2020-01-22] MEDS: Piperacillin/Tazobactam 3.375 GM in Sodium Chloride 0.9% 100 ML IVPB SCH ×3 (04:59→18:35)
[2020-01-22 07:11] LABS: #Eosinphils 0.1 thou/uL (0.0-0.7); #Lymphocytes 0.8 thou/uL (1.20-3.40); #Monocytes 0.6 thou/uL (0.11-0.59); #Neutrophils 6.3 thou/uL (1.40-6.50); %Basophils 0.2 % (0.0-1.0); %Eosinophils 1.3 % (0.0-10.0); %Neutrophils 80.6 % (42.0-75.0); Hemoglobin 8.9 g/dL (14.0-18.0); Mean Corpuscular HGB CONC 30.2 g/dL (32.0-36.0); Mean Corpuscular Hemoglobin 26.8 pg (27.0-31.0); Mean Corpuscular Volume 88.7 fL (78.0-98.0); Mean Platelet Volume 9.7 fL (7.4-10.4); Platelet Count 231 thou/uL (130-400); RBC Distribution Width 14.4 % (11.5-14.5); Red Blood Cell (RBC) Count 3.31 mill/uL (4.70-6.10); White Blood Cell (WBC) Count 7.8 thou/uL (4.8-10.8)
[2020-01-22 07:50] LABS: Anion Gap 10 mmol/L (10-20); BUN (Urea Nitrogen) 26 mg/dL (8.4-25.7); Calc. Creatinine Clearance 88 mL/min (70-130); Calcium 8.2 mg/dL (7.8-10.44); Carbon Dioxide 26 mmol/L (23-31); Chloride 109 mmol/L (98-107); Estimated GFR-MDRD Greater than 90; Glucose 73 mg/dL (83-110); Magnesium 1.8 mg/dL (1.6-2.6); Phosphorus 3.1 mg/dL (2.3-4.7); Potassium 4.3 mmol/L (3.5-5.1); Sodium 141 mmol/L (136-145)
[2020-01-22] MEDS: Amiodarone 200 MG TAB PO SCH ×2 (09:04→21:39)
[2020-01-22] MEDS: Famotidine 20 MG TAB PO SCH ×2 (09:05→21:39)
[2020-01-22] MEDS: Metoprolol Tartrate 25 MG TAB PO SCH ×2 (09:06→21:39)
[2020-01-22] MEDS: Enoxaparin Sodium 30 MG/0.3 ML SYRINGE SC SCH (09:08)
--- NOTE | 2020-01-22 17:23 | PDOC.PALPN ---
Palliative Progress Note - Subjective Alert, appetite improving slightly. Colostomy with good output. Ambulating with minimal assistance to bedside commode. at bedside. - Objective Vital Signs: Vital Signs - Most Recent Temp Pulse Resp BP Pulse Ox 97.4 F L 92 16 111/74 98 01/22/20 12:01 01/22/20 14:28 01/22/20 14:28 01/22/20 12:01 01/22/20 14:28 - Physical Exam Constitutional: cachectic, emaciated, ill appearing HEENT: moist MMs, sclera anicteric, poor dentition Respiratory: no wheezing, unlabored breathing Cardiovascular: RRR Gastrointestinal: soft, colostomy Genitourinary: continent Musculoskeletal: no clubbing, no edema, diffuse muscle atrophy Neurology: moves all 4 limbs, no focal deficits Skin: cap refill <2 seconds, fragile Deviation from normal: Abdominal surgical wound Psychiatric: A&O x 3, normal mood - Assessment (1) Physical deconditioning Code(s): R53.81 - OTHER MALAISE Current Visit: Yes Status: Acute (2) Palliative care encounter Code(s): Z51.5 - ENCOUNTER FOR PALLIATIVE CARE Current Visit: Yes Status: Acute (3) Emaciated Code(s): E41 - NUTRITIONAL MARASMUS Current Visit: Yes Status: Acute (4) Metastatic adenocarcinoma Code(s): C79.9 - SECONDARY MALIGNANT NEOPLASM OF UNSPECIFIED SITE Current Visit: Yes Status: Acute (5) Small bowel obstruction Code(s): K56.609 - UNSP INTESTNL OBST, UNSP TO PARTIAL VERSUS COMPLETE OBST Current Visit: Yes Status: Acute - Plan Plan: Visited with Mr Dao and his at length. Discussed hospice, what is offered and how it impacts quality of life at the end of life. Mr Dao requested to visit with two hospices [facility] and [facility]. He would like to interview each and see which would be a "good fit". CM Notified Dr Loera notified. Will have Palliative Care registrar follow up to complete OOHDNAR for signature Please also refer to Laurie Gomez RNmap clerk notes in note section. [45] minutes spent on this encounter with >50% of the time in counseling and coordination of care. - ROS Constitutional: weakness ENT: other (Denies sore throat, congestion) Respiratory: other (Denies cough) Cardiology: other (Denies chest pain or palpitation) Gastrointestinal: other (Denies nausea today ) Skin: wounds
--- NOTE | 2020-01-22 17:57 | PDOC.CPN ---
- Subjective Date: 01/22/20 Time: 17:57 Interval history: No angina, no palpitations, no syncope. - Review of Systems General: denies: fever/chills, weight/appetite/sleep changes, night sweats, fatigue Respiratory: denies: cough, congestion, shortness of breath, exercise intolerance Cardiovascular: denies: chest pain, palpitation, edema, paroxysmal nocturnal dyspnea, orthopnea Gastrointestinal: denies: nausea, vomiting, diarrhea, constipation, abd pain, GI bleeding Musculoskeletal: denies: pain, tenderness, stiffness, swelling, arthritis/ arthralgias Neurological: denies: numbness, syncope, seizure, weakness - Objective Allergies/Adverse Reactions: Allergies Allergy/AdvReac Type Severity Reaction Status Date / Time No Known Allergies Allergy Unverified 01/11/20 01:11 Visit Medications: Current Medications Albuterol/Ipratropium (Duoneb) 3 ml NEB [id number] COUNT INCLUDES THE [facility] Last Admin: 01/22/20 14:28 Dose: 3 ml Amiodarone HCl (Cordarone) 400 mg PO BID COUNT INCLUDES THE [facility] Last Admin: 01/22/20 09:04 Dose: 400 mg Dextrose/Water (Dextrose 50%) 25 gm SLOW IVP PRN PRN PRN Reason: Hypoglycemia Enoxaparin Sodium (Lovenox) 30 mg SC 0900 COUNT INCLUDES THE [facility] Last Admin: 01/22/20 09:08 Dose: 30 mg Famotidine (Pepcid) 20 mg PO BID COUNT INCLUDES THE [facility] Last Admin: 01/22/20 09:05 Dose: 20 mg Glucagon (Glucagon) 1 mg IM PRN PRN PRN Reason: Hypoglycemia Hydralazine HCl (Apresoline) 10 mg SLOW IVP Q4H PRN PRN Reason: SBP > 170 or DBP > 100 Last Admin: 01/17/20 16:47 Dose: 10 mg Dextrose/Water (D5w) 1,000 mls @ 0 mls/hr IV .Q0M PRN PRN Reason: Hypoglycemia Piperacillin Sod/Tazobactam (Sod 3.375 gm/ Sodium Chloride) 100 mls @ 200 mls/ hr IVPB 0500,1100,1700,2300 COUNT INCLUDES THE [facility] Stop: 01/22/20 18:00 Last Admin: 01/22/20 11:42 Dose: 100 mls Fat Emulsion Intravenous 250 ml/ Sodium Acetate 70 meq/Sodium Chloride 40 meq/ Potassium Chloride 60 meq/Potassium Phosphate 30 mmol/Calcium Gluconate 15 meq/ Magnesium Sulfate 10 meq/Multivitamins 10 ml/ Chromium/Copper/Manganese/Seleni/ Zn 1 ml/ Insulin Human Regular 20 units/ Dextrose/Water/ Amino Acids 1, 881.2717 mls @ 40 mls/hr IV 2200 COUNT INCLUDES THE [facility] Stop: 01/22/20 23:59 Last Admin: 01/21/20 22:19 Dose: 1,881.2717 mls Potassium Chloride 20 meq/ (Lactated Ringer's) 1,010 mls @ 30 mls/hr IV .Q24H COUNT INCLUDES THE [facility] Stop: 01/22/20 23:59 Last Admin: 01/21/20 21:39 Dose: Not Given Insulin Human Regular (Humulin R) 0 units SC .MILD SLIDING SCALE PRN PRN Reason: Mild Correctional Scale Last Admin: 01/16/20 00:25 Dose: 2 unit Metoprolol Tartrate (Lopressor) 12.5 mg PO BID COUNT INCLUDES THE [facility] Last Admin: 01/22/20 09:06 Dose: 12.5 mg Morphine Sulfate (Morphine) 4 mg IV Q2H PRN PRN Reason: Severe Pain (7-10) Ondansetron HCl (Zofran) 4 mg IVP Q6H PRN PRN Reason: Nausea Sodium Chloride (Flush - Normal Saline) 10 ml IVF PRN PRN PRN Reason: Saline Flush Last Admin: 01/19/20 05:03 Dose: 10 ml Vital Signs & Weight: Vital Signs Temp Pulse Resp BP Pulse Ox 01/22/20 14:28 92 16 98 01/22/20 12:01 97.4 F L 93 12 111/74 98 01/22/20 10:50 83 20 98 01/22/20 08:40 98.1 F 84 12 120/75 98 01/22/20 07:15 87 16 98 Admit Weight 134 lb 12.8 oz Weight 137 lb 9.6 oz - Physical Exam General: alert & oriented x3 HEENT: mucus membranes moist Neck: supple neck Cardiac: regular rate and rhythm Lungs: clear to auscultation Neuro: grossly intact Abdomen: active bowel sounds Extremities: no edema Skin: clear Musculoskeletal: normal range of motion - Labs Result Diagrams: 01/22/20 03:26 01/22/20 03:26 Troponin/CKMB Troponin I Less than 0.010 ng/mL (< 0.028) 01/17/20 09:06 - Assessment/Plan Assessment/Plan: 1. Atrial tachycardia vs 2-1 Atrial flutter. Remains in sinus. 2. Metastatic colon Ca 3. HTN 4. HLP PLAN: - Continue PO amiodarone laod at 400 mg PO BID for 6 days then 200 mg daily. - Not a good candidate for anticoagulation given recent surgery and bleeding from GI tract from tumor and obstruction. - ASA alone for stroke prophylaxis. - Not a good candidate for ablation given his weakened state. - EKG tomorrow. - CV stable at this time. - Will sign off. Please call with any questions.
[2020-01-22] MEDS: SODIUM ACETATE IV SCH (21:46)
[2020-01-22] MEDS: [UNRECOGNIZED DRUG - OTHER] IV SCH (21:46)
[2020-01-22] MEDS: SODIUM CHLORIDE IV SCH (21:46)
[2020-01-22] MEDS: Potassium Chloride 20 MEQ in Lactated Ringer's 1,000 ML IV SCH (21:46)
[2020-01-22] MEDS: FAT EMULSION IV SCH (21:46)
[2020-01-23 05:13] LABS: Anion Gap 10 mmol/L (10-20); BUN (Urea Nitrogen) 27 mg/dL (8.4-25.7); Calc. Creatinine Clearance 78 mL/min (70-130); Calcium 7.8 mg/dL (7.8-10.44); Carbon Dioxide 24 mmol/L (23-31); Chloride 111 mmol/L (98-107); Estimated GFR-MDRD Greater than 90; Glucose 90 mg/dL (83-110); Magnesium 1.8 mg/dL (1.6-2.6); Phosphorus 3.2 mg/dL (2.3-4.7); Potassium 4.2 mmol/L (3.5-5.1); Sodium 141 mmol/L (136-145)
[2020-01-23] MEDS: Famotidine 20 MG TAB PO SCH (09:03)
[2020-01-23] MEDS: Amiodarone 200 MG TAB PO SCH (09:03)
[2020-01-23] MEDS: Metoprolol Tartrate 25 MG TAB PO SCH (09:04)
[2020-01-23] MEDS: Enoxaparin Sodium 30 MG/0.3 ML SYRINGE SC SCH (09:07)
--- NOTE | 2020-01-23 09:27 | EKG ---
Test Reason : Blood Pressure : / mmHG Vent. Rate : 094 BPM Atrial Rate : 094 BPM P-R Int : 138 ms QRS Dur : 092 ms QT Int : 342 ms P-R-T Axes : 083 -58 068 degrees QTc Int : 427 ms Normal sinus rhythm Left anterior fascicular block Abnormal ECG When compared with ECG of 17-JAN-2020 05:02, No significant change was found Confirmed by DR. Christopher MORTON ([id number]) on 01/23/2020 9:26:36 AM Referred By: ALMITA Confirmed By:DR. Christopher MORTON
--- NOTE | 2020-01-23 15:07 | PDOC.FMACP ---
Advance Care Planning - Problem (1) Physical deconditioning Status: Acute Code(s): R53.81 - OTHER MALAISE (2) Palliative care encounter Status: Acute Code(s): Z51.5 - ENCOUNTER FOR PALLIATIVE CARE (3) Emaciated Status: Acute Code(s): E41 - NUTRITIONAL MARASMUS (4) Metastatic adenocarcinoma Status: Acute Code(s): C79.9 - SECONDARY MALIGNANT NEOPLASM OF UNSPECIFIED SITE (5) Small bowel obstruction Status: Acute Code(s): K56.609 - UNSP INTESTNL OBST, UNSP TO PARTIAL VERSUS COMPLETE OBST - Note Participants: patient Summary: Advanced Care Planning was discussed. The diagnosis, prognosis and goals of care were discussed. Appropriate forms and documentation to accomplish the goals of care were discussed. All questions were answered. The Palliative Care Team will be engaged to assist with completion of any outstanding forms that are needed. Mr Dao has had lengthy conversations confirming that he wishes for palliative measures only and no resuscitative measures if indicated. Hopeful for transition to home setting with comfort measures at end of life.
[2020-01-23 16:15] VITALS: BP 133/76; TEMP 97.4
--- NOTE | 2020-01-24 03:22 | DIS ---
DATE OF ADMISSION: 01/10/2020 DATE OF DISCHARGE: 01/23/2020 ADMISSION DIAGNOSIS: Small-bowel obstruction, possibly malignant. 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 OPERATIONS/PROCEDURES PERFORMED: On January 14, he underwent an emergent exploratory laparotomy with drainage of extensive infected fluid collection, repair of small-bowel perforation, and jejunojejunostomy (bypass of the malignant obstruction). On January 16, he underwent a repeat laparotomy with abdominal exploration, washout of abdomen, placement of intraabdominal drain. ADMISSION HISTORY: The patient is a 74-year-old black male. He gave an incomplete history of the events that had occurred since August that really were not clear after I had obtained over 200 pages of medical records from [facility]. At the time that he presented, he had extensive small bowel distention, typical of a small bowel obstruction. He had a left-sided colostomy. There was a possible history of metastatic cancer within his abdomen. Nasogastric tube was placed, and the patient was admitted to the hospital. It was noted that the patient had presented to the [facility] twice within the past month with similar findings, and both times he had been transferred back to the [facility]. The patient denied having a nasogastric tube while at the [facility], although subsequent records that I obtained proved that he had had nasogastric decompression. HOSPITAL COURSE: He was admitted to the hospital. Nasogastric tube was placed. I obtained extensive medical records, which I reviewed and summarized in progress notes. In summary, he had an expected finding of metastatic cancer when the patient was scheduled for a robotic sigmoid colectomy in October. It was recognized that the point that he has metastatic disease and was given a diverting transverse loop colostomy, which was revised about a week later. At some point during the patient's course, he was diagnosed with positive for coronavirus, but he apparently long since recovered from this. The patient had received chemotherapy at least once and maybe twice in [place]. During his time here for the first couple of days, it seemed like he was improving. At some point, he had multiple bowel movements per colostomy, and his nasogastric tube was removed. He was started on a clear liquid diet. He developed abdominal pain a little bit after that, and films revealed a large volume of free air within the abdomen consistent with perforation. As same day, on January 14, he underwent emergent exploratory laparotomy with finding of a small bowel perforation and a malignant obstruction. I bypassed the obstruction without resecting anything and repaired the perforation. Two days later, he developed significant onset of tachycardia. Imaging revealed a large volume of free air within the abdomen. It was concerning that he had a repeat perforation. He was therefore returned to the operating room for an exploration. There was no perforation at either of prior perforation site or the anastomotic site. There were no enteric contents. There was a large amount of serosanguineous fluid, which was aspirated, and drain was placed. Thereafter, the patient has slowly improved. 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 There are at least two areas that are close to obstructing and would therefore potentially require further surgery. I had recommended hospice care. The patient has been intermittently confused during this hospitalization, and I believe that when he is confused, he becomes grumpy and accuses people of not being honest with him or treating him appropriately. After his second surgery, it was recognized that he had intermittent episodes of atrial fibrillation. He was seen for this by Dr. Manriquez, who placed him on amiodarone. He continues to take amiodarone currently. He has had no further cardiac issues. Dr. Manriquez recommends he continue on amiodarone. He has been loaded with 400 mg b.i.d., and we will switch to 200 mg daily. Palliative Care consultation was obtained, and they follow the patient closely along with myself over the past several days. The patient finally seems to agree with discharge with hospice. Unfortunately, this morning, he tells me again that he believes he is getting chemotherapy. For the 4th or 5th time, I have told him that I do not think he should get chemotherapy and he tells me he does not remember me telling him this. This leads me to believe that he may have some issues with dementia. Although he has not yet made a decision regarding his hospice company, he requests discharge. He tells me that he and his will choose a hospice company after he is discharged and can review the information. Accordingly, he is being discharged today with plans for him to arrange hospice care once he can review the information. Again, I recommend no chemotherapy. He still has raymond in his abdominal incision, and I have requested he follow up with myself in 7 to 10 days for staple removal. He had Telfa sharan in his incision, but these have been removed. He was instructed in Wound Care. He has been discharged with a prescription for tramadol and amiodarone. I recommend that he resume his home medications otherwise. Finally, he was severely malnourished and cachectic when he presented. He was started on TPN at the time of his first surgery. His albumin level has dropped from 3.0 on January 10 down to 2.0 on December 21. This is in spite of being on TPN for most of this hospitalization. His pre-albumin dropped from 12 on January 10 down to less than 5.0 on the and most recently had come up somewhat at 6.0. This is all in spite of adequate calorie TPN. 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 ASSESSMENT AND PLAN: He is discharged home at this time with instructions to follow up with myself and Dr. Manriquez. He will hopefully arrange hospice care in the near future. Oncology had been consulted, but I do not believe there is any significant further role for Oncology at this time. Job ID: [id number]
== END 2020-01-23 16:00 | disposition hospice, home (50) | DRG 329 ==
LOC: ERS 20:47 → SURG A 22:08 → CCU 01-15 14:20 → SURG A 01-16 10:59 → CCU 01-17 16:10 → 2NO 01-18 22:05 → SURG A 01-20 16:44
PROVIDERS: ADMIT Specialist; ATTEND Specialist
PROC: 02H633Z Insertion of Infusion Device into Right Atrium, Percutaneous Approach (ICD-10-PCS; 2020-01-11)
PROC: B548ZZA Ultrasonography of Superior Vena Cava, Guidance (ICD-10-PCS; 2020-01-11)
PROC: 0D1A0ZA Bypass Jejunum to Jejunum, Open Approach (ICD-10-PCS; principal; 2020-01-15)
PROC: 0W9G0ZZ Drainage of Peritoneal Cavity, Open Approach (ICD-10-PCS; 2020-01-15)
PROC: 0DQ80ZZ Repair Small Intestine, Open Approach (ICD-10-PCS; 2020-01-15)
PROC: 3E0M05Z Introduction of Adhesion Barrier into Peritoneal Cavity, Open Approach (ICD-10-PCS; 2020-01-15)
PROC: 0W9G00Z Drainage of Peritoneal Cavity with Drainage Device, Open Approach (ICD-10-PCS; 2020-01-17)
DX: C78.4 Secondary malignant neoplasm of small intestine (principal); Z66 Do not resuscitate; Z51.5 Encounter for palliative care; K63.1 Perforation of intestine (nontraumatic); K65.9 Peritonitis, unspecified; E43 Unspecified severe protein-calorie malnutrition; C78.6 Secondary malignant neoplasm of retroperitoneum and peritoneum; E87.1 Hypo-osmolality and hyponatremia; Z68.1 Body mass index [BMI] 19.9 or less, adult; R64 Cachexia; I47.1 Supraventricular tachycardia; I48.92 Unspecified atrial flutter; C18.7 Malignant neoplasm of sigmoid colon; K56.7 Ileus, unspecified; I10 Essential (primary) hypertension; E78.00 Pure hypercholesterolemia, unspecified; E78.5 Hyperlipidemia, unspecified; E83.42 Hypomagnesemia; B96.20 Unspecified Escherichia coli [E. coli] as the cause of diseases classified elsewhere; I48.91 Unspecified atrial fibrillation; Z87.891 Personal history of nicotine dependence; Z93.3 Colostomy status; Z90.49 Acquired absence of other specified parts of digestive tract; Z86.19 Personal history of other infectious and parasitic diseases; Z85.038 Personal history of other malignant neoplasm of large intestine; Z79.899 Other long term (current) drug therapy; Z79.82 Long term (current) use of aspirin
CPT/HCPCS: 36415; 36416; 36569; 71045; 74018; 74019; 74177; 74250; 80048; 80053; 80061; 80076; 82378; 82805; 83735; 83880; 84100; 84134; 84484; 85025; 85610; 85730; 86140; 87070; 87077; 87186; 87205; 93005; 93010; 93306; 94640; 96374; A4217; C1751; J0360; J0670; J1642; J1644; J1650; J1815; J1885; J1940; J2001; J2270; J2370; J2405; J2543; J2704; J3010; J3475; J3480; J3490; J7030; J7050; J7120; J7620; P9045; Q9963; Q9967; S0028